=== PATIENT | male | born 1965 | race Caucasian/White ===

== ENCOUNTER 2019-12-09 21:49 | Inpatient (IN) ==
[2019-12-10] MEDS ORDERED: HYDROmorphone INJ 0.5 MG/0.5 ML SYR IV STA (00:23)
[2019-12-10] MEDS ORDERED: ACETAMINOPHEN 1,000 MG/100 ML VIAL IV STA (00:23)
[2019-12-10] MEDS ORDERED: ONDANSETRON INJ 2 MG/ML 2 ML VIAL IV STA (00:23)
[2019-12-10] MEDS ORDERED: SODIUM CHLORIDE 0.9% 1000ML 1,000 ML IV SCH (00:30)
[2019-12-10 01:10] LABS: Basophils # (auto) 0.01 K/uL (0-0.2); Basophils % (auto) 0.1 %; Eosinophils # (auto) 0.06 K/uL (0-0.5); Eosinophils % (auto) 0.8 %; Hematocrit (blood only) 46.2 % (42-52); Hemoglobin 15.4 g/dL (14.0-18.0); Immature Granulocytes # (auto) 0.07 K/uL (0.00-0.02); Immature Granulocytes % (auto) 0.9 %; Lymphocytes # (auto) 1.12 K/uL (1.2-3.4); Lymphocytes % (auto) 14.4 %; Mean Corpuscular Hemoglobin 29.2 pg (25-34); Mean Corpuscular Hgb Conc 33.3 g/dL (32-36); Mean Corpuscular Volume 87.5 fL (80-100); Mean Platelet Volume 9.9 fL (7.4-10.4); Monocytes # (auto) 0.57 K/uL (0.11-0.59); Monocytes % (auto) 7.3 %; Neutrophils # (auto) 5.94 K/uL (1.4-6.5); Neutrophils % (auto) 76.5 %; Platelet Count 287 K/uL (130-400); RDW Coefficient of Variation 13.4 % (11.5-14.5); RDW Standard Deviation 42.5 fL (36.4-46.3); Red Blood Count 5.28 M/uL (4.7-6.1); White Blood Count 7.77 K/uL (4.8-10.8)
--- NOTE | 2019-12-10 01:29 | History & Physical Report ---
Date of Service December 10, 2019 Assessment & Plan (1) Ureterolithiasis: 9mm right admit GMF strain urine IVF Urology consult NPO DVT prophylaxis = SCDs (2) Renal colic: Unable to manage pain as outpatient Pain and nausea control ordered. (3) Hydronephrosis of right kidney: (4) Type II diabetes mellitus: Held glimepiride, metformin, and saxagliptin due to NPO status Sliding scale insulin coverage ordered. History of Present Illness 54 y/o male presented to the ED with continued right flank pain radiating into the right groin. He was seen in the ED on 12/08/19 and was sent home with zofran and oxycodone. He is not able to control his pain and returned to the ED on 12/09. The patient denies F/C, cough, SOB, chest pain, N/V/D, or hematuria. Primary Care Provider: Abilio Santillan Allergies Allergy/AdvReac Type Severity Reaction Status Date / Time CONTRAST DYE Allergy Severe SWELLING Uncoded 12/10/19 00:16 TO FACE/NECK IVP DYE Allergy Severe SWELLING Uncoded 12/10/19 00:16 TO FACE AND THROAT Home Medications Home Medications Medication Instructions Recorded Confirmed Type ondansetron 4 mg PO Q4H PRN #8 tab 12/08/19 12/10/19 Rx oxycodone 5 - 10 mg PO Q4H PRN #14 tab 12/08/19 12/10/19 Rx glimepiride 2 mg PO DAILY 12/10/19 12/10/19 History metformin 1,000 mg PO BID 12/10/19 12/10/19 History saxagliptin [Onglyza] 5 mg PO DAILY 12/10/19 12/10/19 History Past Med/Surg History Medical History HTN (hypertension) Kidney stones Family History Other No pertinent family history in first degree relatives Social History Feels Safe at Home: Yes Smoking Status: Never smoker Review of Systems Review of Systems: All systems reviewed & are unremarkable except as noted in HPI & below Physical Exam Physical Exam: General- adult male, NAD Head- atraumatic Eyes- PERRL, EOMI, anicteric ENT- oropharynx clear Neck- supple, no JVD, no adenopathy, no thyromegaly. Lungs- CTA b/l no R/R/W. Heart- regular rhythm; no murmur, no gallop, no rub appreciated Abdomen- normal bowel sounds, soft, nontender. + right costovertebral angle tenderness with percussion. 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 Skin- warm & dry Results & Data Vital Signs (Past 12 Hours) Vital Signs Temp Pulse Pulse Resp BP BP Pulse Ox 12/10/19 00:13 84 18 127/86 95 12/09/19 22:16 37.1 C 94 H 138/89 Laboratory Results Laboratory Results WBC 7.77 K/uL (4.8-10.8) 12/10/19 00:16 RBC 5.28 M/uL (4.7-6.1) 12/10/19 00:16 Hgb 15.4 g/dL (14.0-18.0) 12/10/19 00:16 Hct 46.2 % (42-52) 12/10/19 00:16 MCV 87.5 fL (80-100) 12/10/19 00:16 MCH 29.2 pg (25-34) 12/10/19 00:16 MCHC 33.3 g/dL (32-36) 12/10/19 00:16 RDW Std Deviation 42.5 fL (36.4-46.3) 12/10/19 00:16 RDW Coeff of Beata 13.4 % (11.5-14.5) 12/10/19 00:16 Plt Count 287 K/uL (130-400) 12/10/19 00:16 MPV 9.9 fL (7.4-10.4) 12/10/19 00:16 Immature Gran % (Auto) 0.9 % 12/10/19 00:16 Neut % (Auto) 76.5 % 12/10/19 00:16 Lymph % (Auto) 14.4 % 12/10/19 00:16 [place] % (Auto) 7.3 % 12/10/19 00:16 Eos % (Auto) 0.8 % 12/10/19 00:16 Baso % (Auto) 0.1 % 12/10/19 00:16 Immature Gran # (Auto) 0.07 K/uL (0.00-0.02) H 12/10/19 00:16 Neut # (Auto) 5.94 K/uL (1.4-6.5) 12/10/19 00:16 Lymph # (Auto) 1.12 K/uL (1.2-3.4) L 12/10/19 00:16 [place] # (Auto) 0.57 K/uL (0.11-0.59) 12/10/19 00:16 Eos # (Auto) 0.06 K/uL (0-0.5) 12/10/19 00:16 Baso # (Auto) 0.01 K/uL (0-0.2) 12/10/19 00:16 Sodium 139 mmol/L (136-145) 12/10/19 00:16 Potassium 4.0 mmol/L (3.5-5.1) 12/10/19 00:16 Chloride 107 mmol/L (98-107) 12/10/19 00:16 Carbon Dioxide 25 mmol/L (21-32) 12/10/19 00:16 Anion Gap 7.0 (3-11) 12/10/19 00:16 BUN 22 mg/dl (7-18) H 12/10/19 00:16 Creatinine 1.66 mg/dl (0.6-1.4) H 12/10/19 00:16 Est Cr Clr Drug Dosing 57.4 ml/min 12/10/19 00:16 Est GFR ( Amer) 53.0 12/10/19 00:16 Est GFR (Non-Af Amer) 45.7 12/10/19 00:16 BUN/Creatinine Ratio 13.3 (10-20) 12/10/19 00:16 Glucose 127 mg/dl (70-99) H 12/10/19 00:16 Calcium 9.2 mg/dl (8.5-10.1) 12/10/19 00:16 Urine Color Yellow 12/10/19 01:00 Urine Appearance Clear (Clear) 12/10/19 01:00 Urine pH 5.0 (4.5-7.5) 12/10/19 01:00 Ur Specific [place] 1.027 (1.000-1.030) 12/10/19 01:00 Urine Protein Trace (Negative) H 12/10/19 01:00 Urine Glucose (UA) Trace (Negative) H 12/10/19 01:00 Urine Ketones 1+ (Negative) H 12/10/19 01:00 Urine Blood Trace (Negative) H 12/10/19 01:00 Urine Nitrite Negative (Negative) 12/10/19 01:00 Urine Bilirubin Negative (Negative) 12/10/19 01:00 Urine Urobilinogen Negative (Negative) 12/10/19 01:00 Ur Leukocyte Esterase Negative (Negative) 12/10/19 01:00 Urine WBC (Auto) 1-5 /hpf (0-5) 12/10/19 01:00 Urine RBC (Auto) 0-4 /hpf (0-4) 12/10/19 01:00 U Hyaline Cast (Auto) 1-5 /lpf (0-5) 12/10/19 01:00 U Epithel Cells (Auto) 20-30 /lpf (0-5) H 12/10/19 01:00 Urine Bacteria (Auto) Negative (Negative) 12/10/19 01:00 Diagnostic Findings [place] [phone] CT Scan Report Patient: EUSEBIA ARIASAdmit Date: 12/08/19 MR#: [id number]: [address] SON[address] HYMAN Acct ID:[id number]: [facility]: 1965[facility] Zip: [place] [address] Age: 54Location: ED Sex: M Room/Bed: Att Phy:Diagnosis: POSSIBLE KIDNEY STONES Claudia Phy: Abilio Santillan D.OJosephineService Date: 12/08/19 Fam Phy:Interpreting Phy: John Amin MD Admit Phy: Ordering Phy: Rl Avila MD cc: ~ CT SCAN OF THE ABDOMEN AND PELVIS WITHOUT IV CONTRAST CLINICAL HISTORY: Right flank pain. COMPARISON STUDY: Abdominal CT dated 10/29/2012 and 07/21/2011. TECHNIQUE: CT scan of the abdomen and pelvis is performed from the lung bases to the proximal femora. Images are reviewed in the axial, sagittal, and coronal planes. IV contrast was not administered for this examination. A dose lowering technique was utilized adhering to the principles of ALARA. CT DOSE: 998.99 mGycm FINDINGS: Lung bases: The heart is normal in size noting trace pericardial fluid. The coronary arteries are densely calcified. There is a small hiatal hernia. A 5 mm pleural-based nodule at the right lung base on image #33 and a 5 mm pleural- based nodule in the right lower lobe in image #5 are unchanged dating back to 2010 and of doubtful significance. There is no airspace consolidation or pleural effusion. Liver: The unenhanced liver is enlarged, measuring 20.9 cm in length. The liver demonstrates diffusely diminished attenuation consistent with severe hepatic steatosis. Fatty sparing is seen adjacent to gallbladder fossa. There is no intrahepatic biliary ductal dilatation. Gallbladder: Unremarkable. Spleen: Normal in size and attenuation. Pancreas: Unremarkable. Adrenal glands: Unremarkable. Kidneys: The unenhanced kidneys are normal in size. There is a 9 mm obstructing calculus in the right proximal ureter seen on image #201. This is located at the level of L2 and causes moderate right-sided hydronephrosis. There is mild right-sided perinephric and periureteric stranding. There are at least 3 additional nonobstructing right renal calculi measuring up to 4 mm. A 3 mm nonobstructing calculus is seen in the left upper pole. There is no left-sided hydronephrosis. There is no evidence of contour deforming renal mass lesion. Abdominal vasculature: The abdominal aorta is normal in course and caliber noting moderate atherosclerotic calcification. Bowel: There is moderate sigmoid diverticulosis without CT evidence of acute diverticulitis. No bowel obstruction is seen. The appendix is well-visualized and normal. Peritoneum: There is no intraperitoneal free air or abdominal ascites. Lymphadenopathy: None. Pelvic viscera: The prostate gland is mildly enlarged and heterogeneous. The bladder is partially decompressed and grossly unremarkable. Skeletal structures: No lytic or blastic lesions are seen. IMPRESSION: 1. There is a 9 mm obstructing calculus in the right proximal ureter. This causes moderate right hydronephrosis. 2. Additional small bilateral nonobstructing renal calculi as above. 3. Hepatomegaly and severe hepatic steatosis. 4. The coronary arteries are densely calcified. Consider nonemergent cardiology follow-up. 5. Moderate sigmoid diverticulosis without CT evidence of acute diverticulitis. 6. Additional findings as above. ACT 112: Negative or not required by law. Electronically signed by: John Amin M.D. 12/08/2019 11:07 PM Dictated: 12/08/192256 Transcribed: 12/08/192256 Code Status & VTE Plan VTE Prophylaxis Plan VTE Prophylaxis will be ordered: Yes PG Care Time/CCT Total # of Minutes Spent Total Time Spent: 50 Total Time Spent with Patient: Total time spent is greater than 50% in coor dination of care (as documented) at patient's floor/unit and/or counseling patient: Coding Level of Care Code 85481 Initial Inpt Care Lvl 2 Diagnoses Ureterolithiasis N20.1 Renal colic N23 Hydronephrosis of right kidney N13.30 Type II diabetes mellitus E11.9
[2019-12-10 01:30] LABS: Appearance Urine Clear (Clear); Bacteria Urine Automated Negative (Negative); Bilirubin Urine Negative (Negative); Blood Urine Trace (Negative); Color Urine Yellow; Epithelial Cell Urine Auto 20-30 /lpf (0-5); Glucose Urine UA Trace (Negative); Ketones Urine 1+ (Negative); Leukocyte Esterase Urine Negative (Negative); Nitrite Urine Negative (Negative); Protein Urine Trace (Negative); RBC Urine Automated 0-4 /hpf (0-4); Specific Gravity Urine 1.027 (1.000-1.030); Urobilinogen Urine Negative (Negative)
[2019-12-10 01:30] LABS: BUN Creatinine Ratio 13.3 (10-20); Calcium 9.2 mg/dl (8.5-10.1); Creatinine Clr Calc Pharmacy 57.4 ml/min; Est GFR (Non-African American) 45.7
[2019-12-10] MEDS ORDERED: OXYCODONE/ACETAMINOPHEN 10-325 TAB PO PRN (02:42)
[2019-12-10] MEDS ORDERED: ONDANSETRON INJ 2 MG/ML 2 ML VIAL IV PRN ×2 (02:42→10:02)
[2019-12-10] MEDS ORDERED: GLUCAGON FOR INJ 1 MG VIAL SQ PRN (02:42)
[2019-12-10] MEDS ORDERED: GLUCOSE 40% GEL 15 GM TUBE PO PRN (02:42)
[2019-12-10] MEDS ORDERED: DEXTROSE 50% 50 ML SYRINGE IV PRN (02:42)
[2019-12-10] MEDS ORDERED: HYDROmorphone INJ 0.5 MG/0.5 ML SYR IV PRN (02:42)
[2019-12-10] MEDS ORDERED: ACETAMINOPHEN 325 MG TAB PO PRN (02:42)
[2019-12-10] MEDS ORDERED: GLUCOSE 10 TABS/TUBE PO PRN (02:42)
[2019-12-10] MEDS ORDERED: CARBOHYDRATES FOR HYPOGLYCEMIA PO PRN (02:42)
[2019-12-10] MEDS: LACTATED RINGER'S 1,000 ML IV SCH ×3 (03:47→14:04)
[2019-12-10] MEDS ORDERED: Nursing to Pharmacy Communication ONE (03:48)
[2019-12-10 05:39] LABS: Hematocrit (blood only) 40.5 % (42-52); Hemoglobin 13.4 g/dL (14.0-18.0); Mean Corpuscular Hemoglobin 29.1 pg (25-34); Mean Corpuscular Hgb Conc 33.1 g/dL (32-36); Mean Corpuscular Volume 87.9 fL (80-100); Mean Platelet Volume 9.6 fL (7.4-10.4); Platelet Count 263 K/uL (130-400); RDW Coefficient of Variation 13.5 % (11.5-14.5); RDW Standard Deviation 43.6 fL (36.4-46.3); Red Blood Count 4.61 M/uL (4.7-6.1); White Blood Count 6.04 K/uL (4.8-10.8)
[2019-12-10] MEDS: INSULIN ASPART 100 UNITS/ML 3 ML PEN SC SCH ×2 (05:56→13:03)
[2019-12-10 06:09] LABS: BUN Creatinine Ratio 11.9 (10-20); Calcium 8.6 mg/dl (8.5-10.1); Creatinine Clr Calc Pharmacy 54.1 ml/min; Est GFR (African American) 49.4; Est GFR (Non-African American) 42.6; Potassium 4.3 mmol/L (3.5-5.1)
--- NOTE | 2019-12-10 08:09 | XRay Report ---
KUB HISTORY: Right-sided flank pain. Proximal right ureteral stone. COMPARISON: Abdomen and pelvis CT 12/08/2019. FINDINGS: The bowel gas pattern is unremarkable. There are no dilated loops of small bowel to suggest an obstruction. There is again noted a 7 mm proximal right ureteral stone. This unchanged in positi on. Additional calcifications in the deep pelvis consistent with phleboliths. No pneumoperitoneum or pneumatosis. IMPRESSION: No change in the 7 mm proximal right ureteral stone. ACT 112: Negative or not required by law. Electronically signed by: Fredis Lopez M.D. 12/10/2019 8:07 AM
[2019-12-10] MEDS ORDERED: FAMOTIDINE 20 MG TAB PO SCH (09:00)
--- NOTE | 2019-12-10 09:19 | Urology Consultation ---
Date of Consultation December 10, 2019 Assessment & Plan (1) Hydronephrosis of right kidney: Large right ureteral stone with hydronephrosis. Unlikely to pass the stone on his own. Will plan to take to OR for cysto, possible Uscope, laser litho, and stent. (2) Ureterolithiasis: History of Present Illness Attending Physician: Warren Roman 54 y/o Male with hx of kidney stones. Presented to the ED on 12/08 with right sided flank pain. We was later DCd home with pain meds and zofran. Due to persistent pain he returned to the ER on 12/09. CT scan confirmed a 9mm right prox ureteral stone with hydronephrosis. He was then admitted for pain control and possible surgical intervention. Pt has a hx of stones. He has normally been able to pass them on his own. He has not had ESWL or Uscope in the past. He is voiding well. No hem. No dys. OK stream. No fevers/chills. No N/V/D. Allergies Allergy/AdvReac Type Severity Reaction Status Date / Time CONTRAST DYE Allergy Severe SWELLING Uncoded 12/10/19 00:16 TO FACE/NECK IVP DYE Allergy Severe SWELLING Uncoded 12/10/19 00:16 TO FACE AND THROAT Home Medications Home Medications Medication Instructions Recorded Confirmed Type ondansetron 4 mg PO Q4H PRN #8 tab 12/08/19 12/10/19 Rx oxycodone 5 - 10 mg PO Q4H PRN #14 tab 12/08/19 12/10/19 Rx glimepiride 2 mg PO DAILY 12/10/19 12/10/19 History metformin 1,000 mg PO BID 12/10/19 12/10/19 History saxagliptin [Onglyza] 5 mg PO DAILY 12/10/19 12/10/19 History Patient History Medical History HTN (hypertension) Kidney stones Type II diabetes mellitus Family History Other No pertinent family history in first degree relatives Social History Preferred Language: Slovenian Communication Ability: Effective 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 Beliefs That Will Affect Care: None Current Living Situation: Spouse Other Information That Helps Us Care for You: No Feels Safe at Home: Yes Safety Concerns: Feels Safe At This Time Smoking Status: Former smoker Tobacco Type: smokeless tobacco ; Do You Dip or Chew Tobacco: Yes ; Hx Alcohol Use: No Hx Substance Use: No Review of Systems Review of Systems: All systems reviewed & are unremarkable except as noted in HPI & below Physical Exam Constitutional: WD/WN, vitals as above Eyes: PERRL, conjunctivae normal, anicteric sclerae Neck: trachea midline, no thyromegaly Respiratory: normal respiratory effort, lungs clear to auscultation Cardiovascular: RRR, no murmur, no edema Gastrointestinal (Abdomen): normal bowel sounds, soft, nontender, no hepatosplenomegaly Musculoskeletal: no cyanosis or clubbing, extremities motor strength 5/5 Skin: no rashes, warm and dry Neurologic: patellar DTR's 2+ bilat, sensation intact Psychiatric: A+Ox3, euthymic affect Genitourinary: no testicular masses, no penis abnormality Lymphatic: no cervical or axillary lymphadenopathy Results & Data Vital Signs (Past 12 Hours) Vital Signs Temp Pulse Pulse Resp BP BP Pulse Ox 12/10/19 02:15 36.5 C 81 16 114/74 97 12/10/19 01:50 82 18 140/79 94 12/10/19 00:13 84 18 127/86 95 12/09/19 22:16 37.1 C 94 H 138/89
--- NOTE | 2019-12-10 09:48 | Anesthesiology Consultation ---
Date of Service December 10, 2019 Assessment & Plan (1) Renal colic: Chart Review Chart Review: Acceptable Risk for Surgery Consults Requested none ASA ASA2 Proposed Anesthesia Anesthesia Type: General Risk / Benefits Reviewed With: PT / POA / Parent / Guardian, Accepts Plan and Informed Consent Obtained History Surgery Operation Date: 12/10/19 12:00 Proposed Procedures p Cystoscopy, Right Stent, possible Laser Lithotripsy Nayan Farmer MD Height/Weight Height: 5 ft 8 in Weight: 98.883 kg Allergies Allergy/AdvReac Type Severity Reaction Status Date / Time CONTRAST DYE Allergy Severe SWELLING Uncoded 12/10/19 00:16 TO FACE/NECK IVP DYE Allergy Severe SWELLING Uncoded 12/10/19 00:16 TO FACE AND THROAT Medications Home Medications Medication Instructions Recorded Confirmed Last Taken ondansetron 4 mg PO Q4H PRN #8 tab 12/08/19 12/10/19 Unknown oxycodone 5 - 10 mg PO Q4H PRN #14 tab 12/08/19 12/10/19 Unknown glimepiride 2 mg PO DAILY 12/10/19 12/10/19 12/09/19 metformin 1,000 mg PO BID 12/10/19 12/10/19 12/09/19 saxagliptin [Onglyza] 5 mg PO DAILY 12/10/19 12/10/19 12/09/19 Active Medications Generic Name Dose Route Start Last Admin Trade Name Freq PRN Reason Stop Dose Admin Acetaminophen 650 mg 12/10/19 02:42 12/10/19 05:40 Tylenol PO 01/09/20 02:41 650 mg Q4H PRN Administration mild pain or fever Famotidine 20 mg 12/10/19 09:00 12/10/19 07:56 Pepcid PO 01/09/20 08:59 20 mg BID JAIME Administration Lactated Ringer's 1,000 mls @ 150 mls/hr 12/10/19 02:42 12/10/19 05:06 Lr IV 01/09/20 02:41 150 mls/hr .Q6H40M JAIME Infusion Insulin Aspart 0 units 12/10/19 06:00 12/10/19 05:56 Novolog Flexpen SC 01/09/20 05:59 Not Given Q6 JAIME NPO Date Last Intake of Fluids: 12/09/19 Time Last Intake of Fluids: 00:00 Date Last Intake of Solids: 12/09/19 Time Last Intake of Solids: 16:30 Past Medical History Medical History (Updated 12/10/19 @ 09:51 by Echo Garcia DO) HTN (hypertension) Kidney stones Renal colic (Inactive) Type II diabetes mellitus Exercise / Class Metabolic Activity II 4-5 Yardwork/Stairs/Walk up hill Past Family History Family History Other No pertinent family history in first degree relatives Past Surgical History Surgical History (Updated 12/10/19 @ 09:59 by Echo Garcia DO) H/O colonoscopy Past Anesthesia History No Hx of Anesthesia Complications and No Family Hx of Anesthesia Complications History of PONV No Hx of PONV and No Hx of Motion Sickness Social History Smoking Status: Former smoker tobacco type: smokeless tobacco Do You Dip or Chew Tobacco: Yes Hx Alcohol Use: No Hx Substance Use: No substance use type: does not use Physical Exam Vital Signs Last Vital Signs Temp 36.5 C 12/10/19 02:15 Pulse 81 12/10/19 02:15 Resp 16 12/10/19 02:15 BP 114/74 12/10/19 02:15 Pulse Ox 97 12/10/19 02:15 ENMT Mouth: no TMJ abnormality Thyromental Distance: > or= 3.5 Finger Breadths Mallampati Class: II Neck normal visual inspection and trachea midline; neck extension not limited Respiratory normal respiratory effort Auscultation: lungs clear to auscultation bilaterally Cardiovascular Rate/Rhythm: regular rate and regular rhythm Heart Sounds: no murmur Musculoskeletal Spine: normal cervical ROM Extremities: full ROM of extremities Neurologic moves all extremities Psychiatric Orientation: alert and oriented x 3 Testing Laboratory Results 12/10/19 05:02 12/10/19 05:02 Urine Color Yellow 12/10/19 01:00 Urine Appearance Clear (Clear) 12/10/19 01:00 Urine pH 5.0 (4.5-7.5) 12/10/19 01:00 Ur Specific [place] 1.027 (1.000-1.030) 12/10/19 01:00 Urine Protein Trace (Negative) H 12/10/19 01:00 Urine Glucose (UA) Trace (Negative) H 12/10/19 01:00 Urine Ketones 1+ (Negative) H 12/10/19 01:00 Urine Nitrite Negative (Negative) 12/10/19 01:00 Ur Leukocyte Esterase Negative (Negative) 12/10/19 01:00 Urine WBC (Auto) 1-5 /hpf (0-5) 12/10/19 01:00 Urine RBC (Auto) 0-4 /hpf (0-4) 12/10/19 01:00 U Hyaline Cast (Auto) 1-5 /lpf (0-5) 12/10/19 01:00 U Epithel Cells (Auto) 20-30 /lpf (0-5) H 12/10/19 01:00 Urine Bacteria (Auto) Negative (Negative) 12/10/19 01:00 12/10/19 05:36 POC Glucose 117 H Electrocardiogram Date: 12/10/19 Findings: + NSR @ (73bpm)
[2019-12-10] MEDS ORDERED: METOCLOPRAMIDE HCL INJ 5 MG/ML 2 ML VIAL IV PRN (10:02)
[2019-12-10] MEDS ORDERED: MoRPHine SULFATE 10 MG/ML CARP/VIAL IV PRN (10:02)
[2019-12-10] MEDS ORDERED: MEPERIDINE HCL 25 MG/ML CARP IV PRN (10:02)
[2019-12-10] MEDS ORDERED: ePHEDrine sulfate 50 MG/ML AMP IV PRN (10:02)
[2019-12-10] MEDS ORDERED: ATROPINE SULFATE 0.1 MG/ML 10ML SYR IV PRN (10:02)
[2019-12-10] MEDS ORDERED: fentaNYL citrate 100 MCG/2 ML VIAL IV PRN (10:02)
[2019-12-10] MEDS ORDERED: PROMETHAZINE HCL 12.5 MG in SODIUM CHLORIDE 0.9% 50 ML IV PRN (10:02)
[2019-12-10] MEDS ORDERED: MIDAZOLAM HCL 1 MG/ML 2ML VIAL ONE (10:05)
[2019-12-10] MEDS ORDERED: DEXAMETHASONE SOD INJ 4 MG/ML VIAL ONE (10:05)
[2019-12-10] MEDS ORDERED: LIDOCAINE HCL 2% 2 ML VIAL/AMP(20MG/ML) INFIL ONE (10:05)
[2019-12-10] MEDS ORDERED: PROPOFOL IV EMULSION 10 MG/ML 20 ML VIAL IV ONE (10:05)
[2019-12-10] MEDS ORDERED: ONDANSETRON INJ 2 MG/ML 2 ML VIAL ONE (10:05)
[2019-12-10] MEDS ORDERED: fentaNYL citrate 100 MCG/2 ML VIAL ONE ×2 (10:06→11:05)
[2019-12-10] MEDS ORDERED: CEFAZOLIN 250 MG/ML 1 GM VIAL ONE (11:01)
--- NOTE | 2019-12-10 11:07 | Post Operative Brief Note ---
Immediate Post Op Note v1 Date of Surgery December 10, 2019 Pre & Post Diagnosis Operation Date: 12/10/19 10:50 Pre-Op Diagnosis: RIGHT URETERAL STONE Post-Op Diagnosis: RIGHT URETERAL STONE I identified the patient and participated in the time-out.: Yes Procedure Operation Date: 12/10/19 10:50 Actual Procedures p Cystoscopy, Right Ureteral Stent Placement(Right) - Oleksandr Farmer MD Surgeon Oleksandr Farmer MD [employer] none Estimated Blood Loss 1 Findings Consistent with Post-Op Diagnosis
[2019-12-10] MEDS ORDERED: CEFAZOLIN 2000MG 2,000 MG/15 ML SYR IV ONE (11:21)
--- NOTE | 2019-12-10 11:28 | Fluoroscopy Report ---
[place] KUB HISTORY: RT PROXIMAL STONE FLUOROSCOPY TIME: 18 seconds. FINDINGS: 2 fluoroscopic spot images were submitted for review. Images demonstrate placement of a rig ht ureteral stent which appears in good position. IMPRESSION: Fluoroscopy provided for right ureteral stent placement which appears in good position.. ACT 112: Negative or not required by law. Electronically signed by: Fredis Lopez M.D. 12/10/2019 11:26 AM
[2019-12-10] MEDS ORDERED: PHENAZOPYRIDINE HCL 100 MG TAB PO STA (14:01)
[2019-12-10] MEDS ORDERED: INSULIN ASPART 100 UNITS/ML 3 ML PEN SC SCH (16:30)
--- NOTE | 2019-12-10 19:46 | Discharge Summary ---
Date of Service December 10, 2019 Admission HPI Per Admitting Provider 54 y/o male presented to the ED with continued right flank pain radiating into the right groin. He was seen in the ED on 12/08/19 and was sent home with zofran and oxycodone. He is not able to control his pain and returned to the ED on 12/09. The patient denies F/C, cough, SOB, chest pain, N/V/D, or hematuria. Principal Diagnosis Ureterolithiasis with stent Discharge Exam Constitutional WD/WN, vitals as above Eyes + anicteric sclerae ENMT Ears: no hearing impairment Neck trachea midline Respiratory normal respiratory effort, lungs clear to auscultation Cardiovascular RRR, no murmur, no edema Gastrointestinal (Abdomen) Inspection/Auscultation: normal bowel sounds Musculoskeletal Head/Neck/Chest: normocephalic and head atraumatic Skin no rashes, warm and dry Neurologic moves all extremities Psychiatric A+Ox3, euthymic affect Discharge Data Allergies Allergy/AdvReac Type Severity Reaction Status Date / Time Iodinated Contrast Media Allergy Swelling Verified 12/14/19 10:03 of Lip/Tongue/Throat Consultations 12/10/19 00:47 ED Decision to Admit Stat 12/10/19 02:42 Consult Urology Routine Procedures Performed Operation Date: 12/10/19 10:50 Actual Procedures p Cystoscopy, Right Ureteral Stent Placement(Right) - Oleksandr Farmer MD Ordered Studies 12/10/19 FL KUB Routine FL fluoroscopy <1hr Routine Hospital Course (1) Ureterolithiasis: - CT with 9 mm obstructing calculus of the right proximal ureter causing moderate right hydronephrosis - S/P cystoscopy with right ureteral stent placement --Discussed with Dr. Farmer who states he will be in contact with patient in approximately 1 week for further/definitive stone treatment -We will start Flomax daily; ciprofloxacin 500 mg twice a day x3 days; Percocet as needed -Patient no longer has any flank pain however some mild dysuria which could be from scope versus may be some spasming from stent placement however feels pain is adequately controlled and would like to return home today -Having mild hematuria which is expected after scope and stent placement - advised patient to monitor this and this should improve over the coming days to discuss with urology if ongoing issues (2) Hydronephrosis of right kidney: -Also evidence of possible acute kidney injury -patient is outside of network so limited laboratories to compare; per his doctor has been mo nitoring his renal function due to his diabetes however true baseline is hard to determine at this time -Given the hydronephrosis and kidney stone there may be a component of obstructive uropathy -give a prescription for repeat laboratories and next 2 to 3 days with results to his PCP for monitoring; making adequate urine and electrolytes are stable (3) Type II diabetes mellitus: -Can continue home regimen, recommended if blood sugars remain controlled he could hold metformin for couple days until his repeat blood work is obtained Total Time Total Time Spent Total Time Spent (In Minutes): Greater than 30 minutes Discharge Plan Discharge Items Patient Disposition: Home - Self-Care Reason For Visit: URETERAL STONE Discharge Diagnosis: Kidney Stone with Stent Activity: Resume your previous activity Non-emergency contact: Primary Care Provider Call non-emergency contact if: you have any medication questions, your symptoms worsen and you have a fever Follow-up/Referrals: Abilio Santillan [Primary Care Provider] - Diet: Carb Consistent or DM2 Ambulatory Orders: Basic Metabolic Panel (Routine) Timeframe: 3 Days Location: Determined by Patient Ordered By: Sybil De La Rosa Attending Provider Instructions: Kidney Stone: - You have a kidney stone and had a scope with a stent placed today. You will have a follow up with Dr. Farmer in about a week to consider shockwave/litho tripsy vs another procedure to handle this stone. - You may get bloody urine for a few days but should slowly lessen so keep an eye on this. - Will also start a short course of antibiotics to just make sure there is no bacteria in your urine. You had some prior to your procedure. - You may get some intermittent cramping pain with this stent. So using some pain medication if needed is an option. Be mindful this can cause you to be sleepy/drowsy so no driving if using opiate pain medications - You will also be started on Flomax. This is a medication that can help relax the ureters to make urinating a little easier. You take this daily and will continue this for the next month unless Urology deems to stop it sooner. -- [facility] Urology office is [phone] Elevated Kidney Number: - Your kidney number is slightly bumped. This may be from that stone causing some backward pressure on the kidneys. However with diabetes you may have a slightly higher kidney number as your normal. We do not have a lot of labs to make this determination. Would recommend to have your labs checked in a couple days. This can be done at the normal place you would get your labs and we will have the results sent to your family doctor. - Be mindful Metformin is processed through the kidneys more so if you have ok sugars you could hold this a couple days until you have your labs and just take the Glimepiride but would recommend to watch your sugars. - A lab slip will be given to you. Pending Studies at Discharge: No Stand-Alone Forms: My [facility], Opioid Pain Management, Smoking Cessation Medications and DC Order Prescriptions: New tamsulosin [Flomax] 0.4 mg capsule 0.4 mg PO HS 30 Days Qty: 30 RF: 0 Continued ondansetron 4 mg tablet,disintegrating 4 mg PO Q4H PRN (Reason: nausea and vomiting) Qty: 8 RF: 0 glimepiride 2 mg tablet 2 mg PO DAILY RF: 0 metformin 1,000 mg tablet 1,000 mg PO BID RF: 0 Onglyza 5 mg tablet 5 mg PO DAILY RF: 0 Discontinued oxycodone 5 mg tablet 5 - 10 mg PO Q4H PRN (Reason: pain) Qty: 14 RF: 0 Discharge Orders: Discharge Order (Routine); Ordered 12/10/19 Ordered By: Sybil Richardson/Other Patient Handouts: Stents Ureteral, Cystoscopy Admission Data Admit Date/Time: 12/10/19 01:27 Attending Provider: Warren Roman Admit Provider: Jeffry Valles Primary Care Provider: Abilio Santillan Other Providers: Oleksandr Farmer Other Interventions: Discharge Summary Assessment (RN) Last Done: 12/10/19 18:17 DC Date/Time DO NOT enter until pt leaves facility: 12/10/19 18:30 Supervising Physician Co-Signing Physician Notes Patient was seen and examined by me personally. I performed a brief history and phsyical exam. I reviewed the chart, the orders and discussed the discharge plan in detail with Sybil DELANEY . I read this discharge summary and agree with its contents to entirety. Patient was seen for ureterolithiasis. Patient will be discharged after ureteral stent placement. Patient will followup with urology as an outpatient. Coding Level of Care Code D/C Day Management >30 mins Diagnoses Ureterolithiasis N20.1 Hydronephrosis of right kidney N13.30 Type II diabetes mellitus E11.9
--- NOTE | 2019-12-10 21:28 | Operative Report ---
DATE OF OPERATION: 12/10/2019 ATTENDING OF RECORD: Oleksandr Farmer MD. SURGEON: Oleksandr Farmer MD. WRINKLE CHASER: None. PREOPERATIVE DIAGNOSIS: Right ureteral calculus. POSTOPERATIVE DIAGNOSIS: Right ureteral calculus. PROCEDURE PERFORMED: Cystoscopy, right ureteral stent placement. ANESTHESIA: General endotracheal. COMPLICATIONS: None. SPECIMENS: None. DRAINS: A 6-Latvian x 26 cm ureteral stent. ESTIMATED BLOOD LOSS: Minimal. CONDITION: Stable. INDICATIONS: The patient has a history of right-sided flank pain. CT scan showed a 9 mm proximal right ureteral calculus. After discussion of treatment options, he elected for the above procedure. DESCRIPTION OF PROCEDURE: The patient was brought to the operative suite and positively identified, placed on the table in supine position. After induction of general anesthesia, placed in dorsal lithotomy position. Genitalia prepped and draped in sterile fashion. Preoperative antibiotics were administered and a time-out was performed. A rigid cystoscope passed through the urethra and bladder. Urethra was normal. The prostate showed evidence of significant enlargement with a median lobe. I turned my attention to the right ureteral orifice. As I was doing this, I noted some very small uric acid stones rolling around in the bladder. A sensor wire was passed up to the level of the right renal pelvis through the right ureteral orifice. It was difficult to see the stone due to a significant amount of colonic stool. A 6-Latvian x 26 cm ureteral stent was then placed with a good curl seen proximally and distally. The strings were cut short. The bladder was drained. The patient tolerated the procedure well. Sponge and needle counts were correct, taken to the PACU in stable condition. He will follow up in 1-2 weeks for staged lithotripsy or ureteroscopy. I attest to the content of the Intraoperative Record and any orders documented therein. Any exception s are noted below.
--- NOTE | 2019-12-10 22:09 | Electrocardiogram Report ---
Test Reason : Blood Pressure : / mmHG Vent. Rate : 072 BPM Atrial Rate : 072 BPM P-R Int : 176 ms QRS Dur : 090 ms QT Int : 372 ms P-R-T Axes : 035 -18 004 degrees QTc Int : 407 ms Normal sinus rhythm Normal ECG No previous ECGs available Confirmed by Chuy Mckeon ([id number]) on 12/10/2019 10:09:27 PM Referred By: REFERRED SELF Confirmed By:Chuy Mckeon
--- NOTE | 2019-12-11 00:33 | Emergency Department Note ---
Entered by Humza Yu acting as a scribe for Regina Hall DO History of Present Illness General Chief complaint: Kidney Stone Stated complaint: KIDNEY STONE Time Seen by Provider: 12/10/19 00:09 Source: patient History of Present Illness Provider complaint: Right flank pain Onset (ago): day(s) 4 Location: back and right Severity: similar to prior episodes Pain Consistency: + constant Maximum Pain Intensity: 8 Current Pain Intensity: 8 Relieved By: + none Associated symptoms: + nausea/vomiting; no fever/chills The patient is a 54 year old male who presents to the Emergency Room with complaints of constant right flank pain that started about 4 days ago. The patient rates the pain as an 8/10 and notes nothing has helped relieve it. The patient states that the pain radiates into his right groin. The patient reports that he came to the ED last night for his symptoms and was diagnosed with a 9mm kidney stone. The patient has a history of kidney stones but has been able to pass all of them without needing lithotripsy. The patient was prescribed Oxycodone and Zofran at discharge but he notes the pain medication has not been working. The patient endorses some nausea and vomiting but denies any fevers. The patient also denies any dysuria but notes his urine has been darker than normal. The patient has a history of diabetes and admits that he has not been checking his sugars. Home Medications Home Medications Medication Instructions Recorded Confirmed Type ondansetron 4 mg PO Q4H PRN #8 tab 12/08/19 12/10/19 Rx Onglyza 5 mg PO DAILY 12/10/19 12/10/19 History ciprofloxacin HCl 500 mg PO BID 3 Days #6 tab 12/10/19 Rx glimepiride 2 mg PO DAILY 12/10/19 12/10/19 History metformin 1,000 mg PO BID 12/10/19 12/10/19 History oxycodone-acetaminophen 1 tab PO Q4H PRN 3 Days #15 tab 12/10/19 Rx tamsulosin [Flomax] 0.4 mg PO HS 30 Days #30 cap 12/10/19 Rx Allergies Allergy/AdvReac Type Severity Reaction Status Date / Time CONTRAST DYE Allergy Severe SWELLING Uncoded 12/10/19 00:16 TO FACE/NECK IVP DYE Allergy Severe SWELLING Uncoded 12/10/19 00:16 TO FACE AND THROAT Past Med/Surg History Medical History (Updated 12/11/19 @ 00:33 by Regina Hall DO) HTN (hypertension) Kidney stones Renal colic (Acute) Type II diabetes mellitus Surgical History (Updated 12/10/19 @ 09:59 by Echo Garcia DO) H/O colonoscopy Family History Other No pertinent family history in first degree relatives Social History Preferred Language: Occitan Communication Ability: Effective Tube Bender Required: No Beliefs That Will Affect Care: None Current Living Situation: Spouse Feels Safe at Home: Yes Smoking Status: Former smoker Tobacco Type: smokeless tobacco ; Hx Alcohol Use: No Hx Substance Use: No Review of Systems See HPI for pertinent positives & negatives. and A total of 10 systems reviewed and were otherwise negative Physical Exam Vital Signs Vital Signs - 24 hr 12/09/19 22:16 12/10/19 00:13 Temperature 98.8 F Temperature Source Oral Pulse Rate 94 H Pulse Rate [Right Finger] 84 Pulse Rhythm Regular Pulse Strength Normal Respiratory Rate 18 Respiratory Effort / Characteristics Non-Labored Spontaneous Non-Labored Spontaneous Respiratory Depth Normal Respiratory Pattern Regular Blood Pressure 138/89 Blood Pressure [Right Arm] 127/86 Blood Pressure Mean 105 Blood Pressure Mean [Right Arm] 99 Blood Pressure Position Sitting Blood Pressure Position [Right Arm] Lying Pulse Oximetry 95 Oxygen Delivery Method Room Air Room Air Sepsis Recent Fever Within 48 Hours No Sepsis Action Taken by Nursing No Action Required GENERAL: alert, uncomfortable appearing, well nourished, no distress, non-toxic EYE EXAM: normal conjunctiva, PERRL and EOM's grossly intact OROPHARYNX: no exudate, no erythema, lips, buccal mucosa, and tongue normal and mucous membranes are moist NECK: supple, no nuchal rigidity, no adenopathy, non-tender LUNGS: Clear to auscultation. Normal chest wall mechanics, no w/r/r HEART: no murmurs, S1 normal and S2 normal ABDOMEN: abdomen soft, non-tender, normo-active bowel sounds, no masses, no rebound or guarding. BACK: Back is symmetrical on inspection and there is no deformity, no midline tenderness, no CVA tenderness. SKIN: no rashes and no bruising UPPER EXTREMITIES: upper extremities are grossly normal. FROM, nml pulses b/l. LOWER EXTREMITIES: No pitting edema. FROM, nml pulses b/l. NEURO EXAM: Normal sensorium, cranial nerves II-XII grossly intact, normal speech, no gross weakness of arms, no gross weakness of legs. Course Course 0020: Past medical records reviewed. The patient was evaluated in room A02, and a complete history and physical examination were performed. 0040: I spoke to Dr. Valles [facility] Hospitalist about the patient's case. He has agreed to accept the patient for further evaluation. Consultations Consultation #1: I spoke to Dr. Reena James [facility] Hospitalist about the patient's case. He has agreed to accept the patient for further evaluation. Time: 00:40 Administered Medications Discontinued Medications Acetaminophen (Tylenol) 650 mg PO Q4H PRN PRN Reason: mild pain or fever Stop: 01/09/20 02:41 Last Admin: 12/10/19 05:40 Dose: 650 mg Documented by: [id number] Famotidine (Pepcid) 20 mg PO BID JAIME Stop: 01/09/20 08:59 Last Admin: 12/10/19 07:56 Dose: 20 mg Documented by: [id number] Hydromorphone HCl (Dilaudid) 0.5 mg IV NOW STA Stop: 12/10/19 00:24 Last Admin: 12/10/19 00:53 Dose: 0.5 mg Documented by: [id number] Sodium Chloride (Nss 1000ml) 1,000 mls @ 125 mls/hr IV .Q8H JAIME Stop: 01/09/20 00:29 Last Infusion: 12/10/19 03:47 Dose: 0 mls/hr Documented by: [id number] Admin: 12/10/19 00:52 Dose: 125 mls/hr Documented by: [id number] Acetaminophen (Ofirmev) 1,000 mg in 100 mls @ 400 mls/hr IV NOW STA Stop: 12/10/19 00:37 Last Infusion: 12/10/19 01:30 Dose: 0 mls/hr Documented by: [id number] Admin: 12/10/19 01:13 Dose: 400 mls/hr Documented by: [id number] Lactated Ringer's (Lr) 1,000 mls @ 150 mls/hr IV .Q6H40M JAIME Stop: 01/09/20 02:41 Last Admin: 12/10/19 14:04 Dose: 150 mls/hr Documented by: [id number] Infusion: 12/10/19 14:04 Dose: 0 mls/hr Documented by: [id number] Admin: 12/10/19 13:03 Dose: Not Given Documented by: [id number] Infusion: 12/10/19 05:06 Dose: 150 mls/hr Documented by: [id number] Admin: 12/10/19 03:47 Dose: 150 mls/hr Documented by: [id number] Cefazolin Sodium (Ancef 2000mg) 2,000 mg in 15 mls @ 3.75 mls/min IV PREOP ONE Stop: 12/10/19 11:24 Last Admin: 12/10/19 10:58 Dose: 3.75 mls/min Documented by: [id number] Insulin Aspart (Novolog Flexpen) 0 units SC Q6 JAIME Stop: 01/09/20 05:59 Last Admin: 12/10/19 13:03 Dose: Not Given Documented by: [id number] Admin: 12/10/19 05:56 Dose: Not Given Documented by: [id number] Cosigned by: [id number] Insulin Aspart (Novolog Flexpen) 0 units SC ACHS JAIME Stop: 01/09/20 16:29 Last Admin: 12/10/19 17:47 Dose: Not Given Documented by: [id number] Ondansetron HCl (Zofran) 4 mg IV NOW STA Stop: 12/10/19 00:24 Last Admin: 12/10/19 00:53 Dose: 4 mg Documented by: [id number] Phenazopyridine HCl (Pyridium) 100 mg PO ONE STA Stop: 12/10/19 14:02 Last Admin: 12/10/19 15:48 Dose: 100 mg Documented by: [id number] Medical Decision Making Differential Diagnosis Differential: Renal Colic, Pyelonephritis, Hydronephrosis, Appendicitis, Diverticulitis, Retroperitoneal Bleed/Infection, Aortic Pathology, MSK, Neurologic Pathology, amongst other pathologies entertained. Medical Records Attestation: I reviewed the patient's medical records. Home Medications Current Medication List: was personally reviewed by me Laboratory Data Attestation: I reviewed the patient's lab results. Result diagrams: 12/10/19 05:02 12/10/19 05:02 Lab Results 12/10/19 12/10/19 12/10/19 Range/Units 00:16 00:16 01:00 WBC 7.77 (4.8-10.8) K/uL RBC 5.28 (4.7-6.1) M/uL Hgb 15.4 (14.0-18.0) g/dL Hct 46.2 (42-52) % MCV 87.5 (80-100) fL MCH 29.2 (25-34) pg MCHC 33.3 (32-36) g/dL RDW Std Deviation 42.5 (36.4-46.3) fL RDW Coeff of Beata 13.4 (11.5-14.5) % Plt Count 287 (130-400) K/uL MPV 9.9 (7.4-10.4) fL Immature Gran % (Auto) 0.9 % Neut % (Auto) 76.5 % Lymph % (Auto) 14.4 % [place] % (Auto) 7.3 % Eos % (Auto) 0.8 % Baso % (Auto) 0.1 % Immature Gran # (Auto) 0.07 H (0.00-0.02) K/uL Neut # (Auto) 5.94 (1.4-6.5) K/uL Lymph # (Auto) 1.12 L (1.2-3.4) K/uL [place] # (Auto) 0.57 (0.11-0.59) K/uL Eos # (Auto) 0.06 (0-0.5) K/uL Baso # (Auto) 0.01 (0-0.2) K/uL Sodium 139 (136-145) mmol/L Potassium 4.0 (3.5-5.1) mmol/L Chloride 107 (98-107) mmol/L Carbon Dioxide 25 (21-32) mmol/L Anion Gap 7.0 (3-11) BUN 22 H (7-18) mg/dl Creatinine 1.66 H (0.6-1.4) mg/dl Est Cr Clr Drug Dosing 57.4 ml/min Est GFR ( Amer) 53.0 Est GFR (Non-Af Amer) 45.7 BUN/Creatinine Ratio 13.3 (10-20) Glucose 127 H (70-99) mg/dl Calcium 9.2 (8.5-10.1) mg/dl Urine Color Yellow Urine Appearance Clear (Clear) Urine pH 5.0 (4.5-7.5) Ur Specific Pfeifer 1.027 (1.000-1.030) Urine Protein Trace H (Negative) Urine Glucose (UA) Trace H (Negative) Urine Ketones 1+ H (Negative) Urine Blood Trace H (Negative) Urine Nitrite Negative (Negative) Urine Bilirubin Negative (Negative) Urine Urobilinogen Negative (Negative) Ur Leukocyte Esterase Negative (Negative) Urine WBC (Auto) 1-5 (0-5) /hpf Urine RBC (Auto) 0-4 (0-4) /hpf U Hyaline Cast (Auto) 1-5 (0-5) /lpf U Epithel Cells (Auto) 20-30 H (0-5) /lpf Urine Bacteria (Auto) Negative (Negative) Imaging Data Attestation: I personally reviewed and interpreted this imaging study as follows: My Impression: KUB Calcification noted on the level of L3, likely the kidney stone seen on prior CT. Blood Pressure Blood Pressure Findings: Elevated blood pressure Blood Pressure Disposition: further management by hospitalist TRUNG Narrative Patient here due to worsening pain and nausea after being sent home last night with a kidney stone. Patient with a large proximal kidney stone. Patient does have prior history of stones although is typically been able to pass them. Patient tried to arrange close follow-up with [facility] urology but was told it would be 1 month before he could be seen. Patient is a diabetic. Patient's labs and urine last night were reassuring, repeat this evening does show CHUCHO. No evidence of infection. Given patient has a large proximal stone, is showing CHUCHO, is a diabetic, and is failing outpatient management otherwise, case discussed with hospitalist for additional inpatient management and urology consultation. Patient was hemodynamically stable. Patient made aware of all results and was in agreement with plan. Impression & Plan Renal colic, Failure of outpatient treatment, CHUCHO (acute kidney injury) Discharge Plan Visit Data *Final* Discharge Date/Time: 12/10/19 01:53 Chief Complaint: Kidney Stone Stated Complaint: KIDNEY STONE ED Provider: Regina Hall Discharge Problem: Renal colic, Failure of outpatient treatment, CHUCHO (acute kidney injury) Patient Disposition: Admitted As Inpatient Discharge Instructions Interventions: ED Discharge Assessment Last Done: 12/10/19 01:53 The scribe's documentation has been prepared under my direction and personally reviewed by me in its entirety. I confirm that the note above accurately reflects all work, treatment, procedures, and medical decision making performed by me.
--- NOTE | 2019-12-13 13:23 | Anesthesiology Progress Note ---
Date of Service December 13, 2019 Anesthesia Post Procedure Pain Intensity Right Flank: Pain Intensity: 3 Notes Mental Status: alert / awake / arousable and participated in evaluation Nausea / Vomiting: adequately controlled Pain: adequately controlled Airway Patency, RR, SpO2: stable & adequate BP & HR: stable & adequate Hydration State: stable & adequate
== END 2019-12-10 18:30 | disposition home or self-care (01) | DRG 661 ==
LOC: ED 21:49 → OBSVTOIN 12-10 01:27 → INTOOBSV 12-10 01:27 → SUATTDRO 12-10 01:27 → 3E 12-10 01:27

== ENCOUNTER 2024-06-12 05:40 | Inpatient (IN) ==
--- OUTSIDE RECORDS SUMMARY | 2024-06-12 05:45 | External Medical Summary | Summary of Care ---
Author Name Unknown Organization [facility] Address [address] [place] [address] Phone [phone] Care Team Providers Care Elevated Guard Name Role Phone Unavailable Primary Care Provider Unavailabl e Encounter Details Date Type Department Care Team (Late st Contact Info) Description 06/06/2024 Orders Only Outcomes Research Department [address] [place], [place] [id number] Mable Rich CHRA MyCode Research Other*[id number] Allergies Active Allergy Reactions Criticality Noted Date Comments Ivp Dye 01/07/2005 documented as of this encounter (statuses as of 06/06/2024) Medications Medication Sig Dispensed Refills Start Date End Date Status Blood Glucose Monitoring Suppl (ONE TOUCH ULTRA SYSTEM KIT) W/DEVICE KIT 4 times a day as needed for Other. Use up to four times a day as directed 1 Kit 0 02/14/2015 Active ONE TOUCH ULTRASOFT LANCETS MISC 4 times a day as needed for Other. Use up to four times a day as directed 1 Box 5 02/14/2015 Active carvedilol (COREG) 12.5 MG TabletIndications:HT N, goal below 140/90 One pill by mouth twice a day with food 180 Tab 1 06/29/2015 Active atorvaSTATin (LIPITOR) 40 MG TabletIndications:Dy slipidemia, goal LDL below 100 one daily 90 Tab 1 06/29/2015 Active aspirin 81 MG chewable tabletIndications:DM type 2, goal A1c below 7 Take 1 Tab by mouth daily. with food. 100 Tab 5 06/29/2015 Active lisinopril (PRINIVIL) 5 MG TabletIndications:HT N, goal below 140/90,DM type 2, goal A1c below 7 Take 1 Tab by mouth daily. 90 Tab 1 06/29/2015 Active Meloxicam (MOBIC) 15 MG TabletIndications:Jocelyne int pain Take 1 Tab by mouth daily. for pain. 90 Tab 1 10/01/2015 Active MetFORMIN (GLUCOPHAGE) 1000 MG TabletIndications:DM type 2, goal A1c below 7 TAKE 1 TABLET TWICE A DAY WITH MORNING AND EVENING MEALS 180 Tab 1 10/29/2015 Active albuterol (PROVENTIL HFA) 108 (90 BASE) MCG/ACT inhalerIndications:C ough,SOB (shortness of breath) Inhale 2 Puffs by mouth every 6 hours as needed for Shortness of Breath or Wheezing. 1 Inhaler 1 11/05/2015 Active Promethazine-Codeine 6.25-10 MG/5ML syrupIndications:Cou gh Take 5 mL by mouth 4 times a day as needed for Cough. 120 mL 1 11/05/2015 Active Glucose Blood (FileStringTOUCH ULTRA BLUE) STRP Use as directed 4 times a day as needed for Other. Use up to four times a day as directed Dx E11.9 100 Strip 5 11/16/2015 Active documented as of this encounter (statuses as of 06/06/2024) Active Problems Problem Noted Date Diagnosed Date Joint pain 06/29/2015 Neck pain 08/24/2012 Dyslipidemia, goal LDL below 100 05/28/2012 HTN, goal below 140/90 05/20/2012 Tension headache 05/20/2012 Tobacco use disorder 12/28/2002 History of kidney stones Obstructive sleep apnea Nephrolithiasis Type 2 diabetes mellitus wit h hemoglobin A1c goal of less than 7.0% Overview: ICD-10 update of inactive term documented as of this encounter (statuses as of 06/06/2024) Resolved Problems Problem Noted Date Diagnosed Date Resolved Date Carotid stenosis 05/09/2012 06/29/2015 Overview: less than 50% bilaterally Myocardial infarction 2011 Overview: [facility]. Normal stress, no cath documented as of this encounter (statuses as of 06/06/2024) Immunizations Name Administration Dates Next Due TDAP (age 10 and older)(Boostrix) 02/14/2015 documented as of this encounter Social History Tobacco Use Types Packs/Day Years Used Date Smoking Tobacco: Former Cigarettes 1 20 0 11/09/1971 - 11/09/1991 Smokeless Tobacco: Current Snuff Alcohol Use Standard Drinks/Week Comments No 0 (1 standard drink = 0.6 oz pur e alcohol) Sex and Gender Information Value Date Recorded Sex Assigned at Not on file Gender Identity Not on file Sexual Orientation Not on file documented as of this encounter Plan of Treatment Scheduled Orders Name Type Priority Associated Diagnoses Orde r Schedule MYCODE INITIAL ADULT Lab Routine MyCode Research Other*[id number] Expected: 06/06/2024 (Approximate), Expires: 06/26/2025 Scheduled Procedures Name Priority Associated Diagnoses Date/Ti me COLONOSCOPY FLEXIBLE PROXIMA L DIAGNOSTIC Recall Special screening for malignant neoplasms, colon Health Maintenance Due Date Last Done Comments Pneumococcal Vaccine: Pediatrics (0 to 5 Years) and At-Risk Patients (6 to 64 Years) (1 of 2 - PCV) 1970 HIV Screening 1979 Diabetic Eye Exam 1982 Hepatitis C Screening 1982 Hepatitis B Vaccine (1 of 3 - 19+ 3-dose series) 1983 Cologuard 2009 Fecal Occult Blood Test 2009 Sigmoidoscopy 2009 Zoster Vaccines (1 of 2) 2014 Depression Screening 09/28/2015 09/28/2014 Albumin/Creatinine Ratio 02/15/2016 02/14/2015 Diabetic Foot Exam 02/15/2016 02/14/2015 GFR 02/18/2016 02/17/2015, 09/10, 10/29/2012, Additional history exists HbA1c 05/07/2016 11/06/2015, 02/07, 10/20/2014 Lipid Panel 02/18/2020 02/17/2015, 09/10, 08/24/2012, Additional history exists COVID-19 Vaccine ( - 2022- season) 2023 Influenza Vaccine (FLU shot) (#1) 2024 DTaP,Tdap,and Td Vaccines (2 - Td or Tdap) 02/14/2025 02/14/2015 Colonoscopy 03/26/2025 03/26/2015, 03/26/2015 Colorectal Cancer Screening 03/26/2025 HPV (Gardasil) Vaccine Aged Out No lo nger eligible based on patient's age to complete this topic MENINGOCOCCAL (MENACTRA/MENVEO) Aged Out No longer eligible based on patient's age to complete this topic documented as of this encounter Medical Devices Not on filedocumented as of this encounter Visit Diagnoses Diagnosis MyCode Research Other*[id number] documented in this encounter
[2024-06-12 06:08] LABS: iSTAT Creatinine 1.1 mg/dl (0.6-1.3); iSTAT Hemoglobin 17.7 g/dl (14.0-18.0); iSTAT Ionized Calcium 1.15 mmol/l (1.12-1.32); iSTAT Potassium 4.5 mmol/L (3.3-5.0)
[2024-06-12 06:19] LABS: Basophils # (auto) 0.07 K/uL (0.00-0.20); Basophils % (auto) 1.1 %; Eosinophils % (auto) 1.6 %; Hematocrit (blood only) 53.3 % (42.0-52.0); Hemoglobin 17.6 g/dl (14.0-18.0); Immature Granulocytes # (auto) 0.03 K/uL (0.01-0.20); Immature Granulocytes % (auto) 0.5 %; Lymphocytes # (auto) 1.41 K/uL (1.20-3.40); Mean Corpuscular Hemoglobin 29.4 pg (25.0-34.0); Mean Platelet Volume 10.2 fL (9.4-12.4); Monocytes # (auto) 0.39 K/uL (0.11-0.59); Monocytes % (auto) 6.4 %; Neutrophils # (auto) 4.12 K/uL (1.40-6.50); Neutrophils % (auto) 67.4 %; Platelet Count 266 K/uL (130-400); RDW Coefficient of Variation 12.7 % (11.5-14.5); RDW Standard Deviation 41.1 fL (36.4-46.3); Red Blood Count 5.99 M/uL (4.70-6.10); White Blood Count 6.12 K/ul (4.8-10.8)
[2024-06-12 06:46] LABS: Troponin I High Sensitivity 28.5 pg/ml (0-20)
[2024-06-12 06:47] LABS: Albumin Level 4.9 gm/dl (3.4-5.0); Bilirubin,Total 0.5 mg/dl (0.2-1.0); Calcium 9.6 mg/dl (8.6-10.3); Potassium 4.6 mmol/L (3.5-5.1)
[2024-06-12 06:53] LABS: Albumin Globulin Ratio 1.6 (0.9-2); BUN Creatinine Ratio 15.1 (10-20); Creatinine Clr Calc Pharmacy 82.9 ml/min; Est GFR (African American) 88.6 ml/min; Est GFR (Non-African American) 76.4 ml/min; Globulin 3.1 gm/dl (2.5-4.0)
--- NOTE | 2024-06-12 07:21 | Emergency Department Note ---
Impression & Plan Chest pain ED Provider Note NAME: EUSEBIA ARIAS AGE: 58 SEX: Male INFORMANT: Patient ED PROVIDER(S): Rl Avila MD CHIEF COMPLAINT: Chest pain PLAN: Disposition: Admitted Outpatient prescription management: none Referral: None MEDICAL DECISION MAKING: Patient presented because of chest pain. ECG did not reveal any acute findings. Cardiac troponin was mildly elevated. Remainder blood work was unremarkable. Patient was given additional aspirin as he took 81 mg prior to arrival. Patient was also given nitroglycerin and was reassessed. He was pain-free after nitroglycerin. He did have Nitropaste applied. Chest x-ray was unremarkable. I discussed further need for treatment and management in the hospital. Patient and are in agreement. Consultation was made with Dr. Arroyo of the [facility] hospitalist service. Patient was evaluated in the ER. After evaluation admission patient's repeat cardiac troponin did come back significantly more elevated. Did discuss this with the hospitalist service and they are managing. Care/management discussed with: none Level of care consideration(s): After review of the information above and other included data, I feel the patient requires escalation of care to admission Triage Nursing notes: reviewed and agree them. Vital Signs: reviewed and remarkable for no significant abnormalities Additional History obtained from: none Chronic Medical/Social Conditions affecting care: Diabetes Prior/ Outside/ External records reviewed: none Differential Diagnosis: Cardiac ischemia, aortic dissection, pulmonary embolism, pneumothorax, pneumonia, pericarditis, myocarditis, esophageal rupture, GERD, cholecystitis, pancreatitis, musculoskeletal, as well as other pathologies. Diagnostics, independently interpreted by me: ECG: Twelve-lead ECG rhythm normal sinus rhythm with anterior Q waves at [address] elevation. Cardiac Monitoring: Cardiac monitoring ordered by me: The patient was placed on continuous cardiac monitoring and observed. It revealed a normal sinus rhythm at 71 beats per minute without ectopy or evidence of dysrhythmia. Medical decision rules: none Imaging studies: Chest x-ray. Findings: A chest x-ray was performed and revealed no pneumothorax, effusion, infiltrate, pulmonary edema, free air under the diaphragm, or wide mediastinum. Impression: No acute disease. HPI: 58 year old Male arrives for evaluation of chest pain. This started 0230 this morning and is improving. The patient also notes the following associated symptoms, jaw pain, nausea. The patient has taken no medication for relieving factors. Current pain is rated as 2/10. Pain was a 9. Pt denies LOC, headache, fevers, chills, diaphoresis, visual changes, neck pain, breathing difficulties, nausea, vomiting, abdominal pain, back pain, melena, hematochezia, urinary symptoms, numbness, weakness, lymphadenopathy, rash, or other complaints. . PAST MEDICAL HISTORY: See Below, DM PAST SURGICAL HISTORY: See Below, SOCIAL HISTORY: See Below, HOME MEDICATIONS: See Below ALLERGIES: See Below VITALS: See Below PHYSICAL EXAMINATION: GENERAL: Awake, alert, well-appearing, in no distress HENT: Normocephalic, atraumatic. Oropharynx unremarkable. EYES: Normal conjunctiva. Sclera non-icteric. NECK: Inspection normal. Non-tender. Supple. No nuchal rigidity. FROM. No masses. RESPIRATORY: Clear to auscultation. No wheezes. No rales. Normal respiratory effort. CARDIAC: Normal rate. Normal rhythm. No murmurs. No rubs. Extremities warm and well perfused. Pulses equal. No JVD. GI: Soft, non-distended. No tenderness to palpation. No rebound or guarding. No masses. RECTAL: Deferred. MUSCULOSKELETAL: Atraumatic. Chest examination reveals no tenderness. The back is symmetrical on inspection without obvious abnormality. There is no CVA tenderness to palpation. No joint edema. LOWER EXTREMITIES: Calves are equal size bilaterally and non-tender. No edema. No discoloration. NEURO: Normal sensorium. No sensory or motor deficits noted. SKIN: No rash or jaundice noted. PROCEDURES: none CRITICAL CARE: none OBSERVATION NOTE: none Past Med/Surg History Problem List (Updated 06/12/24 @ 10:15 by Humza Arroyo MD) Tobacco use NSTEMI (non-ST elevated myocardial infarction) Chest pain (Acute) Carotid arterial disease Dyslipidemia Left axis deviation Abnormal EKG Nephrolithiasis Nocturia Urgency of urination BPH loc w urin obs/LUTS Encounter for pre-operative examination Failure of outpatient treatment Hydronephrosis of right kidney CHUCHO (acute kidney injury) S/P ureteral stent placement Renal colic H/O colonoscopy Type II diabetes mellitus HTN (hypertension) Medical History Nephrolithiasis Nocturia Urgency of urination BPH loc w urin obs/LUTS Obesity Osteoarthritis Enlarged heart Myocardial Infarction Hyperlipidemia Sleep apnea Type II diabetes mellitus Renal colic HTN (hypertension) Kidney stones Surgical History S/P ureteral stent placement H/O colonoscopy Family History Father Heart disease Other No pertinent family history in first degree relatives Social History Smoking Status: Never smoker Tobacco Type: Smokeless Tobacco (Dip or Chew) Second Hand Exposure: No; Do You Dip or Chew Tobacco: Yes (1 CAN PER DAY); Hx Alcohol Use: No Hx Substance Use: No Preferred Language: Chinese Communication Ability: Effective [employer] Instructor Required: No Beliefs That Will Affect Care: None marital status: Current Living Situation: Spouse and Family current occupational status: employed Feels Safe at Home: Yes Assistive Devices: Glasses Allergies Allergies Allergy/AdvReac Type Severity Reaction Status Date / Time Iodinated Contrast Media Allergy Swelling Verified 09/24/23 09:53 of Lip/Tongue/Throat Home Meds Home Medications Medication Instructions Recorded Confirmed dapagliflozin propanediol 10 mg 10 mg PO DAILY 08/13/23 06/12/24 tablet (Farxiga) metformin 500 mg tablet 500 mg PO DAILY 08/13/23 06/12/24 tirzepatide 7.5 mg/0.5 mL 7.5 mg subcut WK 06/12/24 06/12/24 subcutaneous pen injector (Nicol) Previous Rx's Medication Instructions Recorded aspirin 81 mg tablet,delayed 81 mg PO DAILY #100 tabs 08/13/23 release (Adult Low Dose Aspirin) atorvastatin 40 mg tablet 40 mg PO DAILY #90 tabs 08/13/23 Results & Data (ED) Vital Signs Vital Signs - 24 hr 06/12/24 05:45 06/12/24 05:45 06/12/24 05:51 Temperature 37.0 C 37.0 C Temperature Source Oral Oral Pulse Rate 83 85 Pulse Rate [Apical] 84 Pulse Rhythm Pulse Rhythm [Apical] Regular Pulse Strength [Apical] Normal Respiratory Rate 16 18 Respiratory Effort / Characteristics Non-Labored Spontaneous Respiratory Depth Normal Respiratory Pattern Regular Blood Pressure 158/99 H Blood Pressure [Right Arm] 158/99 H Blood Pressure Mean 118 Blood Pressure Mean [Right Arm] 118 Blood Pressure Position [Right Arm] Lying Pulse Oximetry 95 96 Oxygen Delivery Method Room Air Room Air Sepsis Recent Fever Within 48 Hours No Sepsis New/Unexplained Change in Mental Status No Sepsis Action Taken by Nursing No Action Required 06/12/24 05:55 06/12/24 06:03 06/12/24 07:25 Temperature Temperature Source Pulse Rate 84 Pulse Rate [Apical] 80 Pulse Rhythm Regular Pulse Rhythm [Apical] Pulse Strength [Apical] Respiratory Rate 18 25 H Respiratory Effort / Characteristics Non-Labored Spontaneous Respiratory Depth Normal Respiratory Pattern Regular Blood Pressure Blood Pressure [Right Arm] 143/90 H Blood Pressure Mean Blood Pressure Mean [Right Arm] 107 Blood Pressure Position [Right Arm] Pulse Oximetry 96 96 97 Oxygen Delivery Method Room Air Room Air Room Air Sepsis Recent Fever Within 48 Hours Sepsis New/Unexplained Change in Mental Status Sepsis Action Taken by Nursing 06/12/24 09:00 Temperature Temperature Source Pulse Rate Pulse Rate [Apical] 82 Pulse Rhythm Pulse Rhythm [Apical] Pulse Strength [Apical] Respiratory Rate 16 Respiratory Effort / Characteristics Non-Labored Spontaneous Respiratory Depth Normal Respiratory Pattern Blood Pressure Blood Pressure [Right Arm] 134/83 Blood Pressure Mean Blood Pressure Mean [Right Arm] 100 Blood Pressure Position [Right Arm] Pulse Oximetry 94 Oxygen Delivery Method Room Air Sepsis Recent Fever Within 48 Hours Sepsis New/Unexplained Change in Mental Status Sepsis Action Taken by Nursing Laboratory Data 06/12/24 05:49 06/12/24 05:49 Lab Results 06/12/24 06/12/24 06/12/24 Range/Units 05:49 05:54 07:50 WBC 6.12 (4.8-10.8) K/ul RBC 5.99 (4.70-6.10) M/uL Hgb 17.6 (14.0-18.0) g/dl POC Hgb 17.7 (14.0-18.0) g/dl Hct 53.3 H (42.0-52.0) % POC Hct 52 (42-52) % MCV 89.0 (80.0-100.0) fL MCH 29.4 (25.0-34.0) pg MCHC 33.0 (32.0-36.0) g/dL RDW Std Deviation 41.1 (36.4-46.3) fL RDW Coeff of Beata 12.7 (11.5-14.5) % Plt Count 266 (130-400) K/uL MPV 10.2 (9.4-12.4) fL Immature Gran % (Auto) 0.5 % Neut % (Auto) 67.4 % Lymph % (Auto) 23.0 % [place] % (Auto) 6.4 % Eos % (Auto) 1.6 % Baso % (Auto) 1.1 % Neut # (Auto) 4.12 (1.40-6.50) K/uL Lymph # (Auto) 1.41 (1.20-3.40) K/uL [place] # (Auto) 0.39 (0.11-0.59) K/uL Eos # (Auto) 0.10 (0.00-0.50) K/uL Baso # (Auto) 0.07 (0.00-0.20) K/uL Immature Gran # (Auto) 0.03 (0.01-0.20) K/uL PT 10.6 (9.0-12.0) Seconds INR 1.0 (0.9-1.1) APTT 29 (21-31) Seconds PTT Ratio 1.1 POC Sodium 140 (135-144) mmol/L Sodium 139 (136-145) mmol/L POC Potassium 4.5 (3.3-5.0) mmol/L Potassium 4.6 (3.5-5.1) mmol/L POC Chloride 106 (101-112) mmol/L Chloride 106 (98-107) mmol/L Carbon Dioxide 24 (21-32) mmol/L POC Total CO2 23 L (24-31) mmol/L Anion Gap 9 (3-11) POC Anion Gap 17.0 (16-25) mmol/L POC BUN 17 (7-18) mg/dl BUN 16 (6-23) mg/dl Creatinine 1.06 (0.6-1.4) mg/dl POC Creatinine 1.1 (0.6-1.3) mg/dl Est Cr Clr Drug Dosing 82.9 ml/min Est GFR ( Amer) 88.6 ml/min Est GFR (Non-Af Amer) 76.4 ml/min BUN/Creatinine Ratio 15.1 (10-20) Glucose 172 H (70-99(Fasting)) mg/dl POC Glucose (other) 167 H (70-99) mg/dl Calcium 9.6 (8.6-10.3) mg/dl POC Ioniz Calcium Gwendolyn 1.15 (1.12-1.32) mmol/l Total Bilirubin 0.5 (0.2-1.0) mg/dl AST 23 (13-39) U/L ALT 27 (7-52) U/L Alkaline Phosphatase 78 (34-104) U/L Troponin I High Sens 28.5 H 266.5 H* D (0-20) pg/ml Total Protein 8.0 (6.0-8.3) gm/dl Albumin 4.9 (3.4-5.0) gm/dl Globulin 3.1 (2.5-4.0) gm/dl Albumin/Globulin Ratio 1.6 (0.9-2) Lipase 42 (11-82) U/L Administered Medications Heparin Sodium/Dextrose (Heparin Sodium/Dextrose) 25,000 units in 500 mls @ 28 mls/hr IV .[id number] [facility]; Protocol Stop: 07/12/24 09:29 Last Admin: 06/12/24 09:59 Dose: 1,400 units/hr, 28 mls/hr Documented By: ANDRES Co-signed By: LOVE Metoprolol Tartrate (Metoprolol Tartrate 25 Mg Tab) 12.5 mg PO BID [facility] Stop: 07/12/24 11:44 Last Admin: 06/12/24 12:57 Dose: 12.5 mg Documented By: ROSIBEL Nitroglycerin (Nitroglycerin 2% Ointment 30gm Tube) 1 inch EXT Q6H [facility] Stop: 07/12/24 10:59 Last Admin: 06/12/24 11:20 Dose: 1 inch Documented By: ROSIBEL Discontinued Medications Aspirin (Aspirin Chew 324 Mg) 243 mg PO NOW STA Stop: 06/12/24 07:22 Last Admin: 06/12/24 07:43 Dose: 243 mg Documented By: ANDRES Clopidogrel Bisulfate (Clopidogrel Bisulfate 300 Mg Tab) 300 mg PO NOW STA Stop: 06/12/24 11:39 Last Admin: 06/12/24 12:57 Dose: 300 mg Documented By: ROSIBEL Heparin Sodium (Porcine) (Heparin Sod (Porcine) 1000 Unit/Ml) 6,000 units IV NOW ONE Stop: 06/12/24 09:31 Last Admin: 06/12/24 09:55 Dose: 6,000 units Documented By: ANDRES Co-signed By: CEF Heparin Sodium/Dextrose (Heparin Iv Adult Wt-Based Standard W/ Initial Bolus Protocol) 1 each IV NOW STA; Protocol Stop: 06/12/24 09:15 Last Admin: 06/12/24 09:40 Dose: 1 each Documented By: Nitroglycerin (Nitroglycerin 2% Ointment 30gm Tube) 0.5 inch EXT NOW STA Stop: 06/12/24 07:22 Last Admin: 06/12/24 07:43 Dose: 0.5 inch Documented By: Nitroglycerin (Nitroglycerin Sl 0.4 Mg/Tab Tab) 0.4 mg SL NOW STA Stop: 06/12/24 07:22 Last Admin: 06/12/24 07:45 Dose: 0.4 mg Documented By: ANDRES Imaging Data Radiologist's Impression: Chest X-Ray 06/12/24 06:00 XR chest 1V portable HISTORY: Chest pain, nonspecific COMPARISON: Chest 11/25/2006. FINDINGS: The lungs are clear. Cardiac silhouette is normal in size. No pleural effusions. No pneumothorax. IMPRESSION: No acute process. ACT 112: Negative or not required by law. Electronically signed by: Fredis Lopez M.D. 06/12/2024 8:01 AM Discharge Plan Visit Data Chief Complaint: Chest Pain Stated Complaint: CHEST PAIN ED Provider: Rl Avila Discharge Problem: Chest pain Patient Disposition: Admitted As Inpatient Discharge Instructions Interventions: ED Discharge Assessment Last Done: 06/12/24 10:18
[2024-06-12] MEDS: ASPIRIN CHEW 324 MG PO STA (07:43)
[2024-06-12] MEDS: NITROGLYCERIN 2% OINTMENT 30GM TUBE EXT STA (07:43)
[2024-06-12] MEDS: NITROGLYCERIN SL 0.4 MG/TAB TAB SL STA (07:45)
--- NOTE | 2024-06-12 08:02 | XRay Report ---
XR chest 1V portable HISTORY: Chest pain, nonspecific COMPARISON: Chest 11/25/2006. FINDINGS: The lungs are clear. Cardiac silhouette is normal in size. No pleural effusions. No pneumot horax. IMPRESSION: No acute process. ACT 112: Negative or not required by law. Electronically signed by: Fredis Lopez M.D. 06/12/2024 8:01 AM
[2024-06-12] MEDS: Heparin IV Adult Wt-Based Standard w/ INITIAL Bolus Protocol IV STA (09:40)
--- NOTE | 2024-06-12 09:45 | Electrocardiogram Report ---
Test Reason : Blood Pressure : / mmHG Vent. Rate : 084 BPM Atrial Rate : 084 BPM P-R Int : 188 ms QRS Dur : 098 ms QT Int : 368 ms P-R-T Axes : 058 -26 065 degrees QTc Int : 434 ms Normal sinus rhythm Poor R wave progression, consider anterior [place] vs. lead placement vs. LVH Abnormal ECG When compared with ECG of 10-DEC-2019 10:02, No significant change was found Confirmed by Marco A Santacruz ([id number]) on 06/12/2024 9:45:36 AM Referred By: REFERRED SELF Confirmed By:Hansel Santacruz
[2024-06-12] MEDS: HEPARIN SOD (PORCINE) 1000 UNIT/ML IV ONE (09:55)
[2024-06-12 09:56] LABS: Partial Thromboplastin Ratio 1.1; Partial Thromboplastin Time 29 Seconds (21-31); Prothrombin Time 10.6 Seconds (9.0-12.0)
[2024-06-12] MEDS: HEPARIN SODIUM/DEXTROSE 25,000 UNITS/500 ML BAG IV SCH (09:59)
--- NOTE | 2024-06-12 10:11 | History & Physical Report ---
Date of Service June 12, 2024 Assessment & Plan (1) NSTEMI (non-ST elevated myocardial infarction): Plan: Telemetry. Heparin drip and topical nitrates. Sublingual nitroglycerin as needed. Beta-ignacio therapy. Cardiac echo pending. Serial troponins. Cardiology consultation. (2) Type II diabetes mellitus: Plan: ADA diet. Metformin is on hold. Sliding scale insulin coverage as needed (3) HTN (hypertension): Plan: Currently stable. Beta-ignacio therapy (4) Tobacco use: Plan: Smoking cessation recommended Plan To be determined History of Present Illness Chief Complaint: Chest pain at rest Primary Care Provider: Abilio Santillan 58-year-old white male who developed chest pressure at rest this morning that radiated to the arms and neck. He had mild shortness of breath with his symptoms but denied overt diaphoresis. He came to the ED for evaluation and his symptoms were relieved with sublingual nitroglycerin. EKG reveals nonspecific changes. His troponin however has increased significantly consistent with non- ST elevation HI. Heparin drip has been started. Cardiac echo is pending along with cardiology consultation. He will be admitted for further evaluation and treatment. He denies any palpitations or syncope Allergies Allergy/AdvReac Type Severity Reaction Status Date / Time Iodinated Contrast Media Allergy Swelling Verified 09/24/23 09:53 of Lip/Tongue/Throat Home Medications Medication Instructions Recorded Confirmed Type aspirin 81 mg tablet,delayed 81 mg PO DAILY #100 tabs 08/13/23 06/12/24 Rx release (Adult Low Dose Aspirin) atorvastatin 40 mg tablet 40 mg PO DAILY #90 tabs 08/13/23 06/12/24 Rx dapagliflozin propanediol 10 mg 10 mg PO DAILY 08/13/23 06/12/24 History tablet (Farxiga) metformin 500 mg tablet 500 mg PO DAILY 08/13/23 06/12/24 History tirzepatide 7.5 mg/0.5 mL 7.5 mg subcut WK 06/12/24 06/12/24 History subcutaneous pen injector (Mounjaro) Past Med/Surg History Problem List (Updated 06/12/24 @ 10:15 by Humza Arroyo MD) Tobacco use NSTEMI (non-ST elevated myocardial infarction) Chest pain (Acute) Carotid arterial disease Dyslipidemia Left axis deviation Abnormal EKG Nephrolithiasis Nocturia Urgency of urination BPH loc w urin obs/LUTS Encounter for pre-operative examination Failure of outpatient treatment Hydronephrosis of right kidney CHUCHO (acute kidney injury) S/P ureteral stent placement Renal colic H/O colonoscopy Type II diabetes mellitus HTN (hypertension) Medical History Nephrolithiasis Nocturia Urgency of urination BPH loc w urin obs/LUTS Obesity Osteoarthritis Enlarged heart Myocardial Infarction Hyperlipidemia Sleep apnea Type II diabetes mellitus Renal colic HTN (hypertension) Kidney stones Surgical History S/P ureteral stent placement H/O colonoscopy Family History Father Heart disease Other No pertinent family history in first degree relatives Social History Smoking Status: Former smoker Second Hand Exposure: No; Do You Dip or Chew Tobacco: Yes (1 CAN PER DAY); Hx Alcohol Use: No Hx Substance Use: No Preferred Language: Bulgarian Communication Ability: Effective Pharmacy Cashier Required: No Beliefs That Will Affect Care: None marital status: Current Living Situation: Spouse current occupational status: employed Feels Safe at Home: Yes Assistive Devices: Glasses Review of Systems 2 Review of Systems: Constitutional-no fever or chills ENT-no blurred vision, no double vision, no epistaxis, no sore throat Respiratory-no cough, no wheezing, no shortness of breath Cardiac-no palpitations, no syncope. Now chest pain-free GI-no nausea, vomiting, diarrhea, melena, hematochezia -no urinary retention, no urinary incontinence, no dysuria, no hematuria Musculoskeletal-no joint pain, no muscle tenderness Skin-no bruising, no rashes, no pruritus Neuro-no isolated weakness, no paresthesia, no weakness Psych-no depression, no anxiety Physical Exam 2 Physical Exam: General-alert and oriented x3, no fever, no chills HEENT-head atraumatic and normocephalic, pupils equal and reactive to light, extraocular muscles intact Neck-no lymphadenopathy or thyromegaly, trachea midline Chest-clear to auscultation. No rales, wheezing or rhonchi Cardiac-regular rate and rhythm, normal S1 and S2 Abdomen-normal bowel sounds, no hepatosplenomegaly Extremities-no cyanosis, clubbing, or edema Neuro-cranial nerves II through XII intact, motor and sensory function within normal limits, strength symmetrical, no focal deficits Psych-normal affect, normal mood Results & Data Results & Data Vital Signs (Past 12 Hours) Vital Signs Temp Pulse Pulse Resp BP BP Pulse Ox 06/12/24 10:00 70 16 151/94 H 97 06/12/24 09:30 72 16 151/88 H 96 06/12/24 09:00 82 16 134/83 94 06/12/24 07:25 80 25 H 143/90 H 97 06/12/24 06:03 84 18 96 06/12/24 05:55 96 06/12/24 05:51 85 06/12/24 05:45 37.0 C 84 18 158/99 H 96 06/12/24 05:45 37.0 C 83 16 158/99 H 95 O2 Del Method 06/12/24 10:00 Room Air 06/12/24 09:30 Room Air 06/12/24 09:00 Room Air 06/12/24 07:25 Room Air 06/12/24 06:03 Room Air 06/12/24 05:55 Room Air 06/12/24 05:51 06/12/24 05:45 Room Air 06/12/24 05:45 Room Air Laboratory Results 06/12/24 05:49 06/12/24 05:49 Code Status & VTE Plan Code Status Full code PG Care Time/CCT Total # of Minutes Spent Total Time Spent with Patient: Total time spent is greater than 50% in coordination of care (as documented) at patient's floor/unit and/or counseling patient: Coding Level of Care Code 37336 INT INP/OBS CARE 375MIN Diagnoses NSTEMI (non-ST elevated myocardial infarction) I21.4 Type II diabetes mellitus E11.9 Primary hypertension I10 Hypertension type: primary hypertension Tobacco use Z72.0 (3) HTN (hypertension) Hypertension type: primary hypertension Qualified Code(s): I10 - Essential (primary) hypertension
[2024-06-12] MEDS: NITROGLYCERIN 2% OINTMENT 30GM TUBE EXT SCH (11:20)
--- NOTE | 2024-06-12 11:37 | Cardiology Consultation ---
Date of Consultation June 12, 2024 Assessment & Plan (1) NSTEMI (non-ST elevated myocardial infarction): Plan 1. NSTEMI: His symptoms and elevated biomarkers are consistent with an acute coronary syndrome. Currently symptom free. On systemic anticoagulation and he did receive some aspirin. I think we will intensify his medical regimen with the addition of Plavix and beta-blockade. I recommended coronary angiography for evaluation. We discussed the risks and alternatives. He is in favor will plan on proceeding tomorrow provided there are no recurrent symptoms. He takes his Munjaro on Fridays. Will try an extended period of fasting before his procedure tomorrow. Metformin on hold. Continue high-dose atorvastatin History of Present Illness Reason for Consultation: NSTEMI Requesting Physician: Dina Attending Physician: Humza Arroyo MD History of Present Illness The patient is a 58-year-old gentleman without a known history of cardiac disease who experienced symptoms of back, axillary and jaw discomfort early this morning the patient was preparing some food for an event this morning when he began to experience the symptoms. Was associated with some nausea and abdominal complaints as well. This symptom was not positional or pleuritic. He was not associated with breathing difficulty, dizziness or palpitations. The patient attempted to rest but his symptoms persisted and in fact got worse. Based on the nature and severity of the symptom he presented the emergency room for evaluation. According to his who was present for today's visit the symptoms improved in route to the emergency room. They resolved entirely with menstruation of the sublingual nitroglycerin. The patient states he may have had similar symptoms on occasion over the years. Often times exertional in nature. However, he seemed to be fairly infrequent and none so severe or extended in duration. He does occasionally has some back and shoulder discomfort with activity. He is scheduled for shoulder surgery and is known to have rotator cuff disease in both shoulders. He has not been experiencing limiting dyspnea. Again, no dizziness or lightheadedness. No history of syncope. No palpitations. Currently feeling well without symptoms of chest, axillary, jaw or back pain. Allergies Allergy/AdvReac Type Severity Reaction Status Date / Time Iodinated Contrast Media Allergy Swelling Verified 09/24/23 09:53 of Lip/Tongue/Throat Home Medications Medication Instructions Recorded Confirmed Type aspirin 81 mg tablet,delayed 81 mg PO DAILY #100 tabs 08/13/23 06/12/24 Rx release (Adult Low Dose Aspirin) atorvastatin 40 mg tablet 40 mg PO DAILY #90 tabs 08/13/23 06/12/24 Rx dapagliflozin propanediol 10 mg 10 mg PO DAILY 08/13/23 06/12/24 History tablet (Farxiga) metformin 500 mg tablet 500 mg PO DAILY 08/13/23 06/12/24 History tirzepatide 7.5 mg/0.5 mL 7.5 mg subcut WK 06/12/24 06/12/24 History subcutaneous pen injector (Mounjaro) Patient History Medical History Nephrolithiasis Nocturia Urgency of urination BPH loc w urin obs/LUTS Obesity Osteoarthritis Enlarged heart Myocardial Infarction Hyperlipidemia Sleep apnea Type II diabetes mellitus Renal colic HTN (hypertension) Kidney stones Surgical History S/P ureteral stent placement H/O colonoscopy Family History Father Heart disease Other No pertinent family history in first degree relatives Social History Smoking Status: Never smoker Tobacco Type: Smokeless Tobacco (Dip or Chew) Second Hand Exposure: No; Do You Dip or Chew Tobacco: Yes (1 CAN PER DAY); Hx Alcohol Use: No Hx Substance Use: No Preferred Language: Romanian Communication Ability: Effective Drafter (Cad) Electronic Required: No Beliefs That Will Affect Care: None marital status: Current Living Situation: Spouse and Family current occupational status: employed Feels Safe at Home: Yes Assistive Devices: Glasses Review of Systems Review of Systems: Per HPI. Current headache Physical Exam Physical Exam: The patient is alert and oriented. Mood and affect appeared normal. He answered all questions appropriately. HEENT: Pupils are equal and reactive to light and accommodation. Extraocular movements are intact. The sclerae are anicteric. Neuro: Cranial nerves intact Lungs: Clear to auscultation bilaterally. He has good air movement without use of accessory muscles. No rales wheezes or rhonchi. Cardiac: Heart demonstrates a regular rate and rhythm. Normal S1 and S2. No murmurs on examination. Pulses: The patient has palpable radial pulses bilaterally that are equal in intensity Extremities: There was no evidence of hypoperfusion. There is no cyanosis or clubbing. There is no edema. Skin: I did not appreciate any rashes on examination today. Results & Data Vital Signs (Past 12 Hours) Vital Signs Temp Pulse Pulse Resp BP BP Pulse Ox 06/12/24 10:42 71 06/12/24 10:17 36.9 C 67 16 134/75 97 06/12/24 10:00 70 16 151/94 H 97 06/12/24 09:30 72 16 151/88 H 96 06/12/24 09:00 82 16 134/83 94 06/12/24 07:25 80 25 H 143/90 H 97 06/12/24 06:03 84 18 96 06/12/24 05:55 96 06/12/24 05:51 85 06/12/24 05:45 37.0 C 84 18 158/99 H 96 06/12/24 05:45 37.0 C 83 16 158/99 H 95 O2 Del Method 06/12/24 10:42 06/12/24 10:17 Room Air 06/12/24 10:00 Room Air 06/12/24 09:30 Room Air 06/12/24 09:00 Room Air 06/12/24 07:25 Room Air 06/12/24 06:03 Room Air 06/12/24 05:55 Room Air 06/12/24 05:51 06/12/24 05:45 Room Air 06/12/24 05:45 Room Air Laboratory Results Abnormal Lab Results 06/12/24 06/12/24 06/12/24 05:49 05:54 07:50 WBC 6.12 RBC 5.99 Hgb 17.6 POC Hgb 17.7 Hct 53.3 H POC Hct 52 MCV 89.0 MCH 29.4 MCHC 33.0 RDW Std Deviation 41.1 RDW Coeff of Beata 12.7 Plt Count 266 MPV 10.2 Immature Gran % (Auto) 0.5 Neut % (Auto) 67.4 Lymph % (Auto) 23.0 Iron % (Auto) 6.4 Eos % (Auto) 1.6 Baso % (Auto) 1.1 Neut # (Auto) 4.12 Lymph # (Auto) 1.41 Iron # (Auto) 0.39 Eos # (Auto) 0.10 Baso # (Auto) 0.07 Immature Gran # (Auto) 0.03 PT 10.6 INR 1.0 APTT 29 PTT Ratio 1.1 POC Sodium 140 Sodium 139 POC Potassium 4.5 Potassium 4.6 POC Chloride 106 Chloride 106 Carbon Dioxide 24 POC Total CO2 23 L Anion Gap 9 POC Anion Gap 17.0 POC BUN 17 BUN 16 Creatinine 1.06 POC Creatinine 1.1 Est Cr Clr Drug Dosing 82.9 Est GFR ( Amer) 88.6 Est GFR (Non-Af Amer) 76.4 BUN/Creatinine Ratio 15.1 Glucose 172 H POC Glucose POC Glucose (other) 167 H Calcium 9.6 POC Ioniz Calcium Gwendolyn 1.15 Total Bilirubin 0.5 AST 23 ALT 27 Alkaline Phosphatase 78 Troponin I High Sens 28.5 H 266.5 H* D Total Protein 8.0 Albumin 4.9 Globulin 3.1 Albumin/Globulin Ratio 1.6 Lipase 42 06/12/24 06/12/24 10:28 10:31 WBC RBC Hgb POC Hgb Hct POC Hct MCV MCH MCHC RDW Std Deviation RDW Coeff of Beata Plt Count MPV Immature Gran % (Auto) Neut % (Auto) Lymph % (Auto) Iron % (Auto) Eos % (Auto) Baso % (Auto) Neut # (Auto) Lymph # (Auto) Iron # (Auto) Eos # (Auto) Baso # (Auto) Immature Gran # (Auto) PT INR APTT PTT Ratio POC Sodium Sodium POC Potassium Potassium POC Chloride Chloride Carbon Dioxide POC Total CO2 Anion Gap POC Anion Gap POC BUN BUN Creatinine POC Creatinine Est Cr Clr Drug Dosing Est GFR ( Amer) Est GFR (Non-Af Amer) BUN/Creatinine Ratio Glucose POC Glucose 126 H POC Glucose (other) Calcium POC Ioniz Calcium Gwendolyn Total Bilirubin AST ALT Alkaline Phosphatase Troponin I High Sens 1444.1 H* D Total Protein Albumin Globulin Albumin/Globulin Ratio Lipase Diagnostic Findings Chest x-ray obtained the time admission did not reveal any acute cardiopulmonary process. ECG Additional Comments: EKG demonstrated normal sinus rhythm with poor R-wave progression in the precordial leads. Nonspecific ST and T-wave changes PG Care Time/CCT Total # of Minutes Spent Total Time Spent with Patient: Total time spent is greater than 50% in coordination of care (as documented) at patient's floor/unit and/or counseling patient: Coding Diagnoses NSTEMI (non-ST elevated myocardial infarction) I21.4
[2024-06-12] MEDS: METOPROLOL TARTRATE 25 MG TAB PO SCH (12:57)
[2024-06-12] MEDS: CLOPIDOGREL BISULFATE 300 MG TAB PO STA (12:57)
--- NOTE | 2024-06-12 15:15 | XCELERA ---
[id number]
[2024-06-12 18:18] LABS: ANTI-Xa, UFH(UnfractionatedHep 0.67 IU/ml (0.3-0.7)
[2024-06-12] MEDS: ACETAMINOPHEN 325 MG TAB PO PRN (18:29)
[2024-06-12] MEDS: IBUPROFEN 200 MG TAB PO STA (23:22)
[2024-06-13 06:09] LABS: Basophils # (auto) 0.05 K/uL (0.00-0.20); Basophils % (auto) 0.7 %; Eosinophils # (auto) 0.16 K/uL (0.00-0.50); Eosinophils % (auto) 2.3 %; Hemoglobin 15.9 g/dl (14.0-18.0); Immature Granulocytes # (auto) 0.04 K/uL (0.01-0.20); Immature Granulocytes % (auto) 0.6 %; Lymphocytes # (auto) 1.82 K/uL (1.20-3.40); Lymphocytes % (auto) 26.1 %; Mean Corpuscular Hemoglobin 29.2 pg (25.0-34.0); Mean Corpuscular Hgb Conc 33.1 g/dL (32.0-36.0); Mean Corpuscular Volume 88.1 fL (80.0-100.0); Mean Platelet Volume 10.2 fL (9.4-12.4); Monocytes # (auto) 0.43 K/uL (0.11-0.59); Monocytes % (auto) 6.2 %; Neutrophils # (auto) 4.47 K/uL (1.40-6.50); Neutrophils % (auto) 64.1 %; Platelet Count 232 K/uL (130-400); RDW Standard Deviation 41.8 fL (36.4-46.3); Red Blood Count 5.45 M/uL (4.70-6.10); White Blood Count 6.97 K/ul (4.8-10.8)
[2024-06-13 06:29] LABS: BUN Creatinine Ratio 17.3 (10-20); Calcium 8.8 mg/dl (8.6-10.3); Creatinine Clr Calc Pharmacy 88.6 ml/min; Est GFR (African American) 97.4 ml/min; Est GFR (Non-African American) 84.1 ml/min; Potassium 4.1 mmol/L (3.5-5.1)
[2024-06-13 06:34] LABS: ANTI-Xa, UFH(UnfractionatedHep 0.53 IU/ml (0.3-0.7)
[2024-06-13] MEDS: CLOPIDOGREL BISULFATE 75 MG TAB PO SCH (08:59)
[2024-06-13] MEDS: ATORVASTATIN 40 MG TAB PO SCH (08:59)
[2024-06-13] MEDS: ASPIRIN 81 MG ECTAB PO SCH (08:59)
--- NOTE | 2024-06-13 13:02 | Pre Anesthesia Assessment ---
Date of Service June 13, 2024 Pre Sedation Assessment Vital Signs Temp Pulse Pulse Resp BP BP Pulse Ox 06/13/24 12:09 83 14 124/82 97 06/13/24 11:21 36.7 C 77 18 127/82 96 06/13/24 08:35 36.5 C 84 18 123/77 97 06/13/24 07:08 73 06/13/24 03:25 36.3 C L 71 18 102/66 98 06/12/24 22:42 36.6 C 75 20 107/65 96 06/12/24 21:41 77 06/12/24 20:00 06/12/24 19:44 36.6 C 79 18 115/66 95 06/12/24 14:38 36.5 C 71 16 131/82 97 06/12/24 14:05 78 O2 Del Method 06/13/24 12:09 Room Air 06/13/24 11:21 Room Air 06/13/24 08:35 Room Air 06/13/24 07:08 06/13/24 03:25 Room Air 06/12/24 22:42 Room Air 06/12/24 21:41 06/12/24 20:00 Room Air 06/12/24 19:44 Room Air 06/12/24 14:38 Room Air 06/12/24 14:05 Cardiovascular + regular rate and + regular rhythm Respiratory + respiratory effort normal Pre-Sedation Airway Assessment Smoking Status: Never smoker Hx Sleep Apnea: No Hx Difficult Intubation: No Short, Thick Neck: Yes Thyromental Distance: > or= 3.5 Finger Breadths Oral Cavity: + Chipped Teeth Mallampati Class: II ASA: ASA2 NPO Status Date of Last Intake of Fluids: 06/13/24 Time of Last Intake of Fluids: 07:00 Date of Last Intake of Solid Food: 06/10/24 Procedure Planning Contraindications for Sedation: none Current Medications Reviewed: Yes Notes The planned sedation has been discussed with the patient. Informed Consent was obtained. I have identified the patient, determined the appropriateness of sedation and have assessed the patient immediately prior to the procedure. All medicine(s) and interventions are by my order.
[2024-06-13] MEDS: fentaNYL citrate PF 100 MCG/2 ML VIAL ONE (13:28)
[2024-06-13] MEDS: HEPARIN (PORCINE) 1000 UNIT/ML 10 ML (CATH LAB USE ONLY) ONE (13:30)
[2024-06-13] MEDS: MIDAZOLAM HCL 1 MG/ML 2ML VIAL ONE (13:30)
[2024-06-13] MEDS: niCARdipine HCL INJ 2.5 MG/ML 10 ML AMP ONE (13:31)
[2024-06-13] MEDS: OPTIRAY 350 ONE (13:31)
[2024-06-13] MEDS: IODIXANOL (VISIPAQUE) 320 MG/ML 100ML IV ONE (13:31)
[2024-06-13] MEDS: NITROGLYCERIN/D5W 100MCG/ML 20ML SYR ONE (13:32)
[2024-06-13] MEDS: diphenhydrAMINE 50 MG/ML VIAL ONE (13:32)
[2024-06-13] MEDS: FAMOTIDINE 20MG/5ML IV PUSH IV ONE (13:33)
[2024-06-13] MEDS: methylPREDNISolone 125 MG/2 ML VIAL ONE ×2 (13:33)
--- NOTE | 2024-06-13 13:34 | Post Anesthesia Assessment ---
Date of Service June 13, 2024 Post Sedation Assessment Vital Signs Temp Pulse Pulse Resp BP BP Pulse Ox 06/13/24 12:09 83 14 124/82 97 06/13/24 11:21 36.7 C 77 18 127/82 96 06/13/24 08:35 36.5 C 84 18 123/77 97 06/13/24 07:08 73 06/13/24 03:25 36.3 C L 71 18 102/66 98 06/12/24 22:42 36.6 C 75 20 107/65 96 06/12/24 21:41 77 06/12/24 20:00 06/12/24 19:44 36.6 C 79 18 115/66 95 06/12/24 14:38 36.5 C 71 16 131/82 97 06/12/24 14:05 78 O2 Del Method 06/13/24 12:09 Room Air 06/13/24 11:21 Room Air 06/13/24 08:35 Room Air 06/13/24 07:08 06/13/24 03:25 Room Air 06/12/24 22:42 Room Air 06/12/24 21:41 06/12/24 20:00 Room Air 06/12/24 19:44 Room Air 06/12/24 14:38 Room Air 06/12/24 14:05 Recovery Score Activity: Moves 4 extremities Respiration: Deep Breath/Cough Circulation: +/-20% PreAnes Value Consciousness: Fully Awake Oxygen Saturation: > 92% On Room Air Discharge Sedation Level of Care: Fast Track Phase II Post Sedation Plan On clinical assessment, the patient appears to have tolerated the sedation without complications. Patient is recovering as anticipated. Patient will continue to be monitored by nursing and may be discharged when sedation discharge criteria are met per below protocol. Upon Completions of procedure up to 15 minutes continue every 5 minute vital signs and the P.A.R. score; then discharge to a Phase I or Fast Track to Phase II per the following guidelines: * Discharge Patient to appropriate Phase II area if PAR is 8 or greater or return to pre- procedure baseline. The post - procedure orders will be as directed. * If PAR score is less than 8 or not return to pre-procedure baseline then patient will follow Phase I monitoring till PAR is reached for Phase II. The Phase I may be done in procedure room or may call to secure a Phase I area. * If naloxone or flumazenil are used for reversal, hold in Phase I for co ntinued monitoring from when last reversal dose was given for a minimum of 60 minutes or longer pending the nurse and/or physician discretion of patient condition before discharge to Phase II. Please call the Sedation Physician to re-evaluate and complete post-note for discharge to Phase II area. Do NOT discharge from procedure sedation or Phase 1 until post- sedation evaluation note is complete by procedure /sedation MD Sedation Discharge Instructions to be given to the patient at discharge to home.
--- NOTE | 2024-06-13 13:34 | Cardiac Catheterization ---
[facility] Data: Manager Clinical Applications Cardiac Status Clinical evaluation leading to the procedure CAD Presenation: Non STEMI Diagnostic Physicians Name: Marco A Santacruz MD Closure Device Recommendations: Medical Therapy and/or Counseling Cardiac Cath Procedure Full Procedure Date June 13, 2024 Pre-Procedure Diagnosis Pre-Procedure Diagnosis: Non STEMI AUC Score AUC Score: 8 Post-Procedure Diagnosis Post-Procedure Diagnosis: Moderate CAD Procedure(s) Performed Procedure(s) Performed: Coronary Angiography and Left Heart Cath Pattern Mechanic Marco A Santacruz MD Dockmaster(s) none Estimated Blood Loss Estimated Blood Loss: 7cc Medication(s) Medication(s): Fentanyl, Heparin, Lidocaine 1%, Nicardipine, Nitroglycerin and Versed Summary of Findings Procedure performed: Cardiac catheterization Staff poultry inspector: Marco A Santacruz MD Indication: NSTEMI Procedure in detail: The patient was informed of the risks benefits and alternatives to the intended procedure, he understood such and wished to proceed. He was taken to the cardiac catheterization suite in a fasting state. Conscious sedation was administered per protocol and the patient was monitored electrocardiographically throughout today's procedure. The right wrist area was prepped and draped in usual sterile fashion. This area was anesthetized using subcutaneous administration of a lidocaine solution. The right radial artery was then accessed using Seldinger technique, and a arterial sheath was placed at this site over a guidewire. The sheath was used to facilitate passage of the cardiac catheter for coronary angiography and left heart catheterization. Coronary angiogram was then obtained in multiple orthogonal views prior to removal of the catheter. At the conclusion of the procedure the sheath was removed and hemostasis was achieved at the access site using manual pressure. The patient tolerated procedure well, there were no immediate complications. Equipment used: 5 Greek tiger 4 Findings: Coronary angiography Left main: Left main was normal in size and caliber and bifurcated normally into the left anterior descending left circumflex artery. Left anterior descending: Left anterior descending was a relatively small vessel with luminal regularities throughout its course. It produced a small very high 1st diagonal, a large 2nd diagonal and medium-sized 3rd diagonal. There was 70% stenosis of the ostial portion of the 3rd diagonal. There is also disease in the LAD at this site estimated at 30-40%. The circumflex: Left circumflex was a large dominant vessel. It produced a large OM1. The distal portion was complex with several small OM branches and a medium-sized OM2 that appeared to be 100% occluded in its ostial portion but reconstituted distally. Right coronary: Right coronary is a small nondominant vessel. Impression: Left dominant coronary system Normal left ventricular filling pressures No evidence of aortic stenosis Severe obstructive coronary disease involving a distal left circumflex and ostium of D1 Hemodynamics Rest Ao:: 107/69 mm of mercury Final Ao: 124/76 mm of mercury LV: 120/1 mm of mercury Left ventricular end-diastolic pressure, 5 mm Hg Recommendations Recommendations: Medical Therapy and/or Counseling Specimens Specimens: None Radiation Exposure (mGy) 760 Contrast (mls) 35 Procedural Complication(s) None Disposition PCU I attest to the content of the Intraoperative Record and any orders documented therein. Any exceptions are noted below. [facility] Card Cath Procedure Codes Cardiac Catheterization Procedure 1: Cardiovascular Cath Procedures: 10627 Coronaries and LHC (+/-LV) Moderate Sedation Procedure 1: Sedation/Anesthesia: 86616 Mod Sedation by the same physician;Init15 Min Child Age 5 & Up Procedure 2: Sedation/Anesthesia: 14602 Mod Sedation by the same physician; Ea [id number] Minutes PG Care Time/CCT Total # of Minutes Spent Total Time Spent with Patient: Total time spent is greater than 50% in coordination of care (as documented) at patient's floor/unit and/or counseling patient:
--- NOTE | 2024-06-13 15:36 | Hospitalist Progress Note ---
Date of Service June 13, 2024 Assessment & Plan (1) NSTEMI (non-ST elevated myocardial infarction): Plan: Telemetry. He remains on heparin drip and topical nitrates. Sublingual nitroglycerin as needed. Beta-ignacio therapy. Cardiac echo pending. Serial troponins. Cardiology consultation appreciated. He will undergo left heart catheterization today, June 13. (2) Type II diabetes mellitus: Plan: ADA diet. Metformin is on hold. Sliding scale insulin coverage as needed (3) HTN (hypertension): Plan: Currently stable. Beta-ignacio therapy (4) Tobacco use: Plan: Smoking cessation recommended Plan Hopeful discharge to home tomorrow, June 14 Admission and Anticipated Discharge Date Admission Date: June 12, 2024 Subjective The patient was seen earlier this morning, June 13, before he went for heart catheterization. He denies any recurrent chest discomfort. He remains on a heparin drip along with Nitropaste, metoprolol and Plavix. Troponin maxed out at 4176 and is now downtrending. Cardiac echo reveals mild LVH with normal ejection fraction and no regional wall motion abnormalities. Heart catheterization will be done today, June 13 Review of Systems 2 Review of Systems: Constitutional-no fever or chills ENT-no blurred vision, no double vision, no epistaxis, no sore throat Respiratory-no cough, no wheezing, no shortness of breath Cardiac-no palpitations, no syncope. Now chest pain-free GI-no nausea, vomiting, diarrhea, melena, hematochezia -no urinary retention, no urinary incontinence, no dysuria, no hematuria Musculoskeletal-no joint pain, no muscle tenderness Skin-no bruising, no rashes, no pruritus Neuro-no isolated weakness, no paresthesia, no weakness Psych-no depression, no anxiety Physical Exam 2 Physical Exam: General-alert and oriented x3, no fever, no chills HEENT-head atraumatic and normocephalic, pupils equal and reactive to light, extraocular muscles intact Neck-no lymphadenopathy or thyromegaly, trachea midline Chest-clear to auscultation. No rales, wheezing or rhonchi Cardiac-regular rate and rhythm, normal S1 and S2 Abdomen-normal bowel sounds, no hepatosplenomegaly Extremities-no cyanosis, clubbing, or edema Neuro-cranial nerves II through XII intact, motor and sensory function within normal limits, strength symmetrical, no focal deficits Psych-normal affect, normal mood Results & Data Results & Data Vital Signs (Past 12 Hours) Vital Signs Temp Pulse Pulse Resp BP BP BP 06/13/24 15:24 36.6 C 82 18 125/85 06/13/24 14:49 80 16 118/89 06/13/24 14:32 68 06/13/24 14:20 82 16 124/72 06/13/24 14:09 78 16 136/87 06/13/24 13:50 75 14 120/74 06/13/24 13:35 77 14 133/90 06/13/24 12:09 83 14 124/82 06/13/24 11:21 36.7 C 77 18 127/82 06/13/24 08:35 36.5 C 84 18 123/77 06/13/24 07:08 73 Pulse Ox O2 Del Method 06/13/24 15:24 97 Room Air 06/13/24 14:49 98 Room Air 06/13/24 14:32 06/13/24 14:20 98 Room Air 06/13/24 14:09 98 Room Air 06/13/24 13:50 95 Room Air 06/13/24 13:35 95 Room Air 06/13/24 12:09 97 Room Air 06/13/24 11:21 96 Room Air 06/13/24 08:35 97 Room Air 06/13/24 07:08 Laboratory Results 06/13/24 05:20 06/13/24 05:20 PG Care Time/CCT Total # of Minutes Spent Total Time Spent with Patient: Total time spent is greater than 50% in coordination of care (as documented) at patient's floor/unit and/or counseling patient: Coding Level of Care Code 06572 SUB INP/OBS CARE MIN Diagnoses NSTEMI (non-ST elevated myocardial infarction) I21.4 Type II diabetes mellitus E11.9 Primary hypertension I10 Hypertension type: primary hypertension Tobacco use Z72.0 (3) HTN (hypertension) Hypertension type: primary hypertension Qualified Code(s): I10 - Essential (primary) hypertension
--- NOTE | 2024-06-13 16:37 | Cardiology Progress Note ---
Date of Service June 13, 2024 Assessment & Plan (1) NSTEMI (non-ST elevated myocardial infarction): Plan 1. NSTEMI: Possibly related to small vessel occlusion involving the distal circumflex. No other culprit lesions identified. At this point we will treat him medically. Will continue dual anti-platelet therapy high-dose atorvastatin and metoprolol. In the absence of recurrent symptoms with activity tomorrow he could likely be discharged home. Hold metformin for 2 days. Will plan referral to cardiac rehab Admission and Anticipated Discharge Date Admission Date: June 12, 2024 Subjective This morning the patient claimed he feeling well. He has not had a recurrence of his presenting symptoms. He has been ambulatory. No dyspnea. No dizziness or lightheadedness. Review of Systems Review of Systems: Per HPI. Current headache Physical Exam Physical Exam: The patient is alert and oriented. Mood and affect appeared normal. He answered all questions appropriately. HEENT: Pupils are equal and reactive to light and accommodation. Extraocular movements are intact. The sclerae are anicteric. Neuro: Cranial nerves intact Lungs: Clear to auscultation bilaterally. He has good air movement without use of accessory muscles. No rales wheezes or rhonchi. Cardiac: Heart demonstrates a regular rate and rhythm. Normal S1 and S2. No murmurs on examination. Pulses: The patient has palpable radial pulses bilaterally that are equal in intensity Extremities: There was no evidence of hypoperfusion. There is no cyanosis or clubbing. There is no edema. Skin: I did not appreciate any rashes on examination today. ENMT: Mallampati Class: II Respiratory: normal respiratory effort Cardiovascular: Rate/Rhythm: regular rate and regular rhythm Results & Data Vital Signs (Past 12 Hours) Vital Signs Temp Pulse Pulse Resp BP BP BP 06/13/24 15:49 87 16 125/85 06/13/24 15:24 36.6 C 82 18 125/85 06/13/24 14:49 80 16 118/89 06/13/24 14:32 68 06/13/24 14:20 82 16 124/72 06/13/24 14:09 78 16 136/87 06/13/24 13:50 75 14 120/74 06/13/24 13:35 77 14 133/90 06/13/24 12:09 83 14 124/82 06/13/24 11:21 36.7 C 77 18 127/82 06/13/24 08:35 36.5 C 84 18 123/77 06/13/24 07:08 73 Pulse Ox O2 Del Method 06/13/24 15:49 97 Room Air 06/13/24 15:24 97 Room Air 06/13/24 14:49 98 Room Air 06/13/24 14:32 06/13/24 14:20 98 Room Air 06/13/24 14:09 98 Room Air 06/13/24 13:50 95 Room Air 06/13/24 13:35 95 Room Air 06/13/24 12:09 97 Room Air 06/13/24 11:21 96 Room Air 06/13/24 08:35 97 Room Air 06/13/24 07:08 Laboratory Results Abnormal Lab Results 06/12/24 06/12/24 06/12/24 17:35 18:05 19:57 WBC RBC Hgb Hct MCV MCH MCHC RDW Std Deviation RDW Coeff of Beata Plt Count MPV Immature Gran % (Auto) Neut % (Auto) Lymph % (Auto) [place] % (Auto) Eos % (Auto) Baso % (Auto) Neut # (Auto) Lymph # (Auto) [place] # (Auto) Eos # (Auto) Baso # (Auto) Immature Gran # (Auto) Heparin Anti-Xa, Unfract 0.67 Sodium Potassium Chloride Carbon Dioxide Anion Gap BUN Creatinine Est Cr Clr Drug Dosing Est GFR ( Amer) Est GFR (Non-Af Amer) BUN/Creatinine Ratio Glucose POC Glucose 116 H 130 H Calcium Troponin I High Sens 4176.5 H* D 06/13/24 06/13/24 06/13/24 00:32 05:20 05:58 WBC 6.97 RBC 5.45 Hgb 15.9 Hct 48.0 MCV 88.1 MCH 29.2 MCHC 33.1 RDW Std Deviation 41.8 RDW Coeff of Beata 13.0 Plt Count 232 MPV 10.2 Immature Gran % (Auto) 0.6 Neut % (Auto) 64.1 Lymph % (Auto) 26.1 [place] % (Auto) 6.2 Eos % (Auto) 2.3 Baso % (Auto) 0.7 Neut # (Auto) 4.47 Lymph # (Auto) 1.82 [place] # (Auto) 0.43 Eos # (Auto) 0.16 Baso # (Auto) 0.05 Immature Gran # (Auto) 0.04 Heparin Anti-Xa, Unfract 0.53 Sodium 138 Potassium 4.1 Chloride 105 Carbon Dioxide 27 Anion Gap 6 BUN 17 Creatinine 0.98 Est Cr Clr Drug Dosing 88.6 Est GFR ( Amer) 97.4 Est GFR (Non-Af Amer) 84.1 BUN/Creatinine Ratio 17.3 Glucose 119 H POC Glucose 187 H Calcium 8.8 Troponin I High Sens 3635.1 H* 06/13/24 06/13/24 14:02 16:04 WBC RBC Hgb Hct MCV MCH MCHC RDW Std Deviation RDW Coeff of Beata Plt Count MPV Immature Gran % (Auto) Neut % (Auto) Lymph % (Auto) [place] % (Auto) Eos % (Auto) Baso % (Auto) Neut # (Auto) Lymph # (Auto) [place] # (Auto) Eos # (Auto) Baso # (Auto) Immature Gran # (Auto) Heparin Anti-Xa, Unfract Sodium Potassium Chloride Carbon Dioxide Anion Gap BUN Creatinine Est Cr Clr Drug Dosing Est GFR ( Amer) Est GFR (Non-Af Amer) BUN/Creatinine Ratio Glucose POC Glucose 86 154 H Calcium Troponin I High Sens Diagnostic Findings A cardiac catheterization performed today revealed some disease in the mid LAD at the site of the 1st diagonal. The 1st diagonal was small. There was no obstructive lesion in the LAD. He did have a left dominant coronary system with what appeared to be a small branch occlusion in the distal portion. Unclear chronicity. No other acute lesions. PG Care Time/CCT Total # of Minutes Spent Total Time Spent with Patient: Total time spent is greater than 50% in coordination of care (as documented) at patient's floor/unit and/or counseling patient: Coding Level of Care Code 36333 SUB INP/OBS CARE 2/35MIN Diagnoses NSTEMI (non-ST elevated myocardial infarction) I21.4
[2024-06-13] MEDS: METOPROLOL TARTRATE 25 MG TAB PO SCH (20:03)
[2024-06-14 08:00] LABS: Basophils # (auto) 0.02 K/uL (0.00-0.20); Basophils % (auto) 0.2 %; Hematocrit (blood only) 50.4 % (42.0-52.0); Hemoglobin 17.1 g/dl (14.0-18.0); Immature Granulocytes # (auto) 0.09 K/uL (0.01-0.20); Immature Granulocytes % (auto) 0.8 %; Lymphocytes # (auto) 0.89 K/uL (1.20-3.40); Lymphocytes % (auto) 8.2 %; Mean Corpuscular Hemoglobin 29.3 pg (25.0-34.0); Mean Corpuscular Hgb Conc 33.9 g/dL (32.0-36.0); Mean Corpuscular Volume 86.4 fL (80.0-100.0); Mean Platelet Volume 10.2 fL (9.4-12.4); Monocytes # (auto) 0.24 K/uL (0.11-0.59); Monocytes % (auto) 2.2 %; Neutrophils # (auto) 9.58 K/uL (1.40-6.50); Neutrophils % (auto) 88.6 %; Platelet Count 288 K/uL (130-400); RDW Coefficient of Variation 12.6 % (11.5-14.5); RDW Standard Deviation 39.2 fL (36.4-46.3); Red Blood Count 5.83 M/uL (4.70-6.10); White Blood Count 10.82 K/ul (4.8-10.8)
[2024-06-14 08:02] LABS: BUN Creatinine Ratio 20.6 (10-20); Calcium 9.4 mg/dl (8.6-10.3); Creatinine Clr Calc Pharmacy 81.1 ml/min; Est GFR (African American) 87.6 ml/min; Est GFR (Non-African American) 75.6 ml/min; Potassium 4.5 mmol/L (3.5-5.1)
--- NOTE | 2024-06-14 11:58 | Discharge Summary ---
Discharge Summary Date of Service June 14, 2024 Principal Dx & Hospital Course #1 = Principal Diagnosis (1) NSTEMI (non-ST elevated myocardial infarction): Telemetry. He remains on heparin drip and topical nitrates. Sublingual nitroglycerin as needed. Beta-ignacio therapy. Cardiac echo pending. Serial troponins. Cardiology consultation appreciated. He will undergo left heart catheterization today, June 13. (2) Type II diabetes mellitus: ADA diet. Metformin is on hold. Sliding scale insulin coverage as needed (3) HTN (hypertension): Currently stable. Beta-ignacio therapy (4) Tobacco use: Smoking cessation recommended Plan Hopeful discharge to home tomorrow, June 14 Admission HPI Per Admitting Provider 58-year-old white male who developed chest pressure at rest this morning that radiated to the arms and neck. He had mild shortness of breath with his symptoms but denied overt diaphoresis. He came to the ED for evaluation and his symptoms were relieved with sublingual nitroglycerin. EKG reveals nonspecific changes. His troponin however has increased significantly consistent with non- ST elevation NE. Heparin drip has been started. Cardiac echo is pending along with cardiology consultation. He will be admitted for further evaluation and treatment. He denies any palpitations or syncope Discharge Exam General-alert and oriented x3, no fever, no chills HEENT-head atraumatic and normocephalic, pupils equal and reactive to light, extraocular muscles intact Neck-no lymphadenopathy or thyromegaly, trachea midline Chest-clear to auscultation. No rales, wheezing or rhonchi Cardiac-regular rate and rhythm, normal S1 and S2 Abdomen-normal bowel sounds, no hepatosplenomegaly Extremities-no cyanosis, clubbing, or edema Neuro-cranial nerves II through XII intact, motor and sensory function within normal limits, strength symmetrical, no focal deficits Psych-normal affect, normal mood Updated Medication List Medication Instructions Recorded Confirmed Type aspirin 81 mg tablet,delayed 81 mg PO DAILY #100 tabs 08/13/23 06/12/24 Rx release (Adult Low Dose Aspirin) atorvastatin 40 mg tablet 40 mg PO DAILY #90 tabs 08/13/23 06/12/24 Rx dapagliflozin propanediol 10 mg 10 mg PO DAILY 08/13/23 06/12/24 History tablet (Farxiga) metformin 500 mg tablet 500 mg PO DAILY 08/13/23 06/12/24 History tirzepatide 7.5 mg/0.5 mL 7.5 mg subcut WK 06/12/24 06/12/24 History subcutaneous pen injector (Nicol) clopidogrel 75 mg tablet 75 mg PO QAM #30 tabs 06/14/24 Rx metoprolol tartrate 25 mg tablet 25 mg PO BID #60 tabs 06/14/24 Rx nitroglycerin 0.4 mg sublingual 0.4 mg sublingual Q5M PRN chest 06/14/24 Rx tablet pain #25 tabs Hospital Stay Data Consultations 06/12/24 07:52 ED Decision to Admit Stat 06/12/24 10:40 Consult Cardiology Routine Procedures Performed Operation Date: 06/13/24 13:00 Actual Procedures p Cineradiography w/Routine Exam - Marco A Santacruz MD p Cath, Left with Cors and Vent - Marco A Santacruz MD Diagnostic Imagining Performed 06/13/24 06:59 CL Cath Imgs for PACS use only Routine Pending Results Patient Have Any Pending Studies at Discharge: No Discharge Instructions Given to Patient (Per Discharging Provider) Smoking cessation is highly recommended. May return to work on Thursday, June 20 with restrictions. Restrictions will be lifted when cleared by cardiology. Total Time Total Time Spent Total Time Spent (In Minutes): 45 minutes Coding Level of Care Code 41936 INP/OBS DISCH >30 MIN Diagnoses NSTEMI (non-ST elevated myocardial infarction) I21.4 Type II diabetes mellitus E11.9 Primary hypertension I10 Hypertension type: primary hypertension Tobacco use Z72.0
--- NOTE | 2024-06-14 12:28 | Cardiology Progress Note ---
Date of Service June 14, 2024 Assessment & Plan (1) NSTEMI (non-ST elevated myocardial infarction): Plan 1. NSTEMI: Possibly related to small vessel occlusion involving the distal circumflex. No other culprit lesions identified. At this point we will treat him medically. Will continue dual anti-platelet therapy high-dose atorvastatin and metoprolol. No recurrent symptoms. Preserved LV systolic function without regional wall motion abnormalities. Hold metformin for 2 days. Will plan referral to cardiac rehab Admission and Anticipated Discharge Date Admission Date: June 12, 2024 Subjective This morning patient claimed he feeling well. He reports being ambulatory around the [place] multiple times without recurrent symptoms of jaw pain, axillary pain or chest pain. No breathing difficulty. No dizziness or lightheadedness. Review of Systems Review of Systems: Per HPI Physical Exam Physical Exam: The patient is alert and oriented. Mood and affect appeared normal. He answered all questions appropriately. HEENT: Pupils are equal and reactive to light and accommodation. Extraocular movements are intact. The sclerae are anicteric. Neuro: Cranial nerves intact Lungs: Clear to auscultation bilaterally. He has good air movement without use of accessory muscles. No rales wheezes or rhonchi. Cardiac: Heart demonstrates a regular rate and rhythm. Normal S1 and S2. Pulses: The patient has palpable radial pulses bilaterally that are equal in intensity Extremities: There was no evidence of hypoperfusion. There is no cyanosis or clubbing. There is no edema. Skin: I did not appreciate any rashes on examination today. ENMT: Mallampati Class: II Respiratory: normal respiratory effort Cardiovascular: Rate/Rhythm: regular rate and regular rhythm Results & Data Vital Signs (Past 12 Hours) Vital Signs Temp Pulse Pulse Resp BP Pulse Ox O2 Del Method 06/14/24 11:00 36.7 C 87 18 118/72 96 Room Air 06/14/24 07:36 94 H 06/14/24 07:30 36.3 C L 95 H 18 120/74 97 Room Air 06/14/24 02:55 36.5 C 87 18 102/59 L 96 Room Air Laboratory Results Abnormal Lab Results 06/13/24 06/13/24 06/13/24 14:02 16:04 20:05 WBC RBC Hgb Hct MCV MCH MCHC RDW Std Deviation RDW Coeff of Beata Plt Count MPV Immature Gran % (Auto) Neut % (Auto) Lymph % (Auto) [place] % (Auto) Eos % (Auto) Baso % (Auto) Neut # (Auto) Lymph # (Auto) [place] # (Auto) Eos # (Auto) Baso # (Auto) Immature Gran # (Auto) Sodium Potassium Chloride Carbon Dioxide Anion Gap BUN Creatinine Est Cr Clr Drug Dosing Est GFR ( Amer) Est GFR (Non-Af Amer) BUN/Creatinine Ratio Glucose POC Glucose 86 154 H 199 H Calcium 06/14/24 06/14/24 06/14/24 06:21 07:09 11:08 WBC 10.82 H RBC 5.83 Hgb 17.1 Hct 50.4 MCV 86.4 MCH 29.3 MCHC 33.9 RDW Std Deviation 39.2 RDW Coeff of Beata 12.6 Plt Count 288 MPV 10.2 Immature Gran % (Auto) 0.8 Neut % (Auto) 88.6 Lymph % (Auto) 8.2 [place] % (Auto) 2.2 Eos % (Auto) 0.0 Baso % (Auto) 0.2 Neut # (Auto) 9.58 H Lymph # (Auto) 0.89 L [place] # (Auto) 0.24 Eos # (Auto) 0.00 Baso # (Auto) 0.02 Immature Gran # (Auto) 0.09 Sodium 136 Potassium 4.5 Chloride 102 Carbon Dioxide 23 Anion Gap 11 BUN 22 Creatinine 1.07 Est Cr Clr Drug Dosing 81.1 Est GFR ( Amer) 87.6 Est GFR (Non-Af Amer) 75.6 BUN/Creatinine Ratio 20.6 H Glucose 198 H POC Glucose 186 H 179 H Calcium 9.4 PG Care Time/CCT Total # of Minutes Spent Total Time Spent with Patient: Total time spent is greater than 50% in coordination of care (as documented) at patient's floor/unit and/or counseling patient: Coding Level of Care Code 42258 SUB INP/OBS CARE 2/35MIN Diagnoses NSTEMI (non-ST elevated myocardial infarction) I21.4
== END 2024-06-14 13:18 | disposition home or self-care (01) | DRG 282 ==
LOC: SUATTDRO → ED 05:40 → 2S 09:13